=== PATIENT | male | born 1960 | race Caucasian/White ===

== ENCOUNTER 2023-09-01 02:22 | Inpatient (IN) | payer BC, SELFPAY ==
[2023-09-01] VITALS (22 sets, daily range): BP systolic 100–163; BP diastolic 72–104; BMI 30.7; BMI 29.9
[2023-09-01] MEDS: LOW STRENGTH ASPIRIN 324 MG PO (00:25)
[2023-09-01] MEDS: NITROSTAT (SUBLINGUAL) 0.400000000000000022 MG SL ×3 (00:33→11:02)
--- NOTE | 2023-09-01 00:33 | ED.GENMED ---
History of Present Illness
General
Chief Complaint: Chest Pain
Source: patient
Exam Limitations: none
Time Seen by Provider: 09/01/23 00:29
Nursing documentation reviewed up to this point in time: agreed with
Travel History
Have you had any contact with someone who has COVID-19?: No
Do you have any symptoms of coronavirus? Fever > 100 degrees, chills, cough, shortness of breath, sore throat, loss of taste or smell, muscle aches, or headache?: No
History of Present Illness
History of Present Illness:
63-year-old male presents with chest pressure onset earlier today has been present most of the day no diaphoresis no nausea vomiting nonradiating for about the past month or so has had shortness of breath and wheezing worse at night when he lies
down, no fever chills no leg edema does not drink or smoke no amphetamine or cocaine use, no history of heart failure or CAD, the new symptom tonight was pressure in his chest
His father at age 51 from an [place] in his sleep
Past History
Past History
ED Past Medical History: None
ED Past Surgical History: None
Social History
Tobacco: Non-smoker
Alcohol: None
Drug: None
Personal:
Living: with family
Employment: Employed
Family History
Family History: CAD and Sudden
Phy Exam
Physical Exam
Physical Exam:
Physical Exam
General: no apparent distress, not acutely ill
Neck: No jaundice
Heart: Regular
Lungs: no acute respiratory distress. clear bilaterally
Abdomen: Nontender
Neuro: alert and oriented. no focal neurological deficits
Skin: no rash
Psychiatric: well kept. interactive and cooperative
Extremities: no edema.
Scores
Heart Score for Chest Pain Patients
STEMI patient?: No
History: Moderately Suspicious
ECG: Nonspecific Repolarization
Age: >45 - <65 years
Risk Factors: No Risk Factors
Troponin: </= Normal Limit
Heart Score for Chest Pain Patients: 3
Heart Score Risk: 2.5% MACE over next 6 weeks
Course
Orders/Labs/Results
Orders:
Orders
09/01/23 00:09
Electrocardiogram (*1) Urgent
Reason for Study: Other
Other Reason for Exam: Respiratory Distress
Cardiac Monitoring- Treatment ONCE
EKG- Treatment ONCE
IV Insert/Care/Rem.- Treatment PRN
CR Chest - 2 Views Urgent
Comment:
Reason For Exam: respiratory distress
O2 Therapy [RESP] Urgent
Titrate/Wean O2 to maintain O2 sat greater than (%): 93
Special Instructions: TO MAINTAIN CONTINUOUS O2 SATS >/= 93%
Pulse Ox/cont/shift [RESP] Urgent
Quantity: 1
Special Instructions: continuous pulse ox
09/01/23 00:23
Complete Blood Count/With Diff Urgent
Comprehensive Metabolic Panel Urgent
NT-proBNP Urgent
Troponin I Urgent
09/01/23 00:25
Aspirin Chewable [Low Strength Aspirin] 324 mg PO NOW STA
09/01/23 00:26
PTT Urgent
Prothrombin Time Urgent
09/01/23 00:28
EKG [Electrocardiogram (*1)] Urgent
Reason for Study: Chest Pain
EKG- Treatment ONCE
09/01/23 00:29
Aspirin 325 mg PO NOW STA
Nitroglycerin Sublingual [Nitrostat (Sublingual)] 0.4 mg SL [id number] PRN
09/01/23 00:30
CR Chest Portable - 1 View Urgent
Comment:
Reason For Exam: sob
Reason Study Needs to be Portable: Unable to Transport
09/01/23 01:08
EKG with chest pain [ECG as needed] As Directed
ECG as needed for:: Chest Pain
09/01/23 01:16
PTT Urgent
Comment: Obtain baseline before beginning heparin infusion if not already collected
Heparin 4,000 units IV NOW STA
Metoprolol [Lopressor] 25 mg PO NOW STA
Pharmacy Request to Place See Dose Instructions PO NOW STA
Discontinue all Active Warfarin orders?: Yes
Nursing to Place Non Medication Order As Directed
Physician Order: PTT 6 hours after initial start of Heparin infusion
09/01/23 01:30
Heparin 92177 Units/250 ml 25,000 units in 250 ml IV PER PROTOCOL
Weight to be used for heparin protocol in kilograms (kg):: 105.4
Protocol:: Cardiac Tx/Acute Coronary
PTT Goal Range to be used:: PTT 73 to 111 seconds
Order type:: Initial
INITIAL Infusion Dose (UNITS/KG/hr) & then follow protocol:: 12 units/kg/hr
Infusion Dose in UNITS/hr & then follow protocol (UNITS/hr):: 1,000
INFUSION RATE in mL/hr & then follow protocol (mL/hr):: 10
PTT less than or equal to 64 seconds:: Increase rate by 200 units/hr (+ 2 mL/hr)
PTT 64.1 to 72.9 seconds:: Increase rate by 100 units/hr (+ 1 mL/hr)
PTT 73 to 111 seconds:: Target Range. No change in rate.
PTT 111.1 to 130.9 seconds:: Decrease rate by 100 units/hr (- 1 mL/hr)
PTT 131 to 199.9 seconds:: HOLD for 1 hr. Then decrease rate by 200 units/hr (- 2 mL/hr)
PTT greater than or equal to 200 seconds:: HOLD for 2 hrs & Notify Provider. Then decrease by 200 units/hr (-
2 mL/hr)
Lab follow-up:: Each change, PTT q6h until 2 consecutive are therapeutic. Then PTT
daily.
09/01/23 02:[address] See Dose Instructions IV DIRECTED
09/01/23 03:30
Troponin I Urgent
Abnormal Lab Results
09/01/23
00:23
MCH 31.5 H pg
(27.0-31.0)
Abs Immat Gran (auto) 0.1 H 10^3/uL
(0-0.05)
Immature Gran % 1.0 H %
(0-0.5)
BUN 24 H mg/dl
(9-20)
09/01/23 00:23
09/01/23 00:23
Vital Signs
Initial and Last Documented VS:
Initial Vital Signs
Temp Pulse Resp BP Pulse Ox
97.7 F 90 20 163/99 100
09/01/23 00:20 09/01/23 00:20 09/01/23 00:20 09/01/23 00:20 09/01/23 00:20
Last Documented Vital Signs
Temp Pulse Resp BP Pulse Ox
97.7 F 97 14 135/85 92
09/01/23 00:20 09/01/23 01:15 09/01/23 01:15 09/01/23 01:03 09/01/23 01:15
MDM/Problems Addressed
Differential Diagnosis Includes:
ACS heart failure a flutter A-fib conceivably PE pneumonia
MDM/Problems Addressed:
Chest pain
*Radiology
Radiology exam reviewed: preliminary read by ED provider
*Pulse Oximetry
Patient hypoxic: no
*EKG
Interpreted by ED Provider?: Yes
Interpretation: abnormal
Comparison EKG: no comparison EKG present
Heart Rate: 108
Rate: tachycardiac
Rhythm: atrial flutter
Ischemia: non-specific ST changes
*Inspector Packer Interpretation
Rate: tachycardiac
Interpretation: abnormal
Heart Rate: 100
Rhythm: a-fib
*Critical Care Note
Total Time (30-74mins, 75-104mins- exclusive of procedures): 30
Update Note
Update Note:
12:50 AM patient chest pain-free after 1 sublingual nitro troponin is pending chest x-ray is pending
1:15 AM patient appears comfortable still in A-fib flutter in the 100-110range, troponins undetectable, will repeat will start on unfractioned heparin start beta-jem due to his family history due to chest pain believe is prudent admitted to the
hospital rule out [place] consideration for specialty consultation etc.
ED Attending Note
-
Portions of this chart may have been created with voice recognition software.� Occasional wrong word or��sound alike� substitutions may have occurred due to the inherent limitations of voice recognition software.
Discharge Plan
Departure
Patient Disposition: Admit
Date of Disposition: 09/01/23
Time of Disposition: 01:20
Admit to: IVU
Presentation/result/management discussed w/ accepting MD/DO: Hospitalist
Patient with high blood pressure during this ER visit?: Yes
Condition: Good
Discharge Problem:
Chest pain, Atrial fibrillation/flutter
Prescriptions:
No Action
ibuprofen 600 mg Tablet
600 mg PO DAILYPRN PRN (Reason: knee pain)
Referrals:
Jaja Cook PA-C [Family Provider] -
Interventions
Interventions:
*Risk Screen - Suicide Last Done: 09/01/23 00:20
*General Assessment Last Done: 09/01/23 00:20
*Neglect/Abuse Screening Last Done: 09/01/23 00:20
ED- Fall Risk Assessment Last Done: 09/01/23 00:31
*ED COVID-19 Vaccine History Last Done: 09/01/23 00:23
ED- Cardiac Assessment Last Done: 09/01/23 00:35
Discharge Date and Time
Print Language: TURKISH
[2023-09-01 00:42] LABS: % Basophils 0.3 % (0-2); % Eosinophils 3.8 % (0-6); % Lymphocytes 39.4 % (20.5-51.1); % Monocytes 8.5 % (1.7-9.3); Absolute Eosinophils 0.3 10^3/uL (0-0.7); Absolute Immature Granulocytes 0.1 10^3/uL (0-0.05); Absolute Lymphocytes 2.7 10^3/uL (1.2-3.4); Absolute Monocytes 0.6 10^3/uL (0.1-0.6); Absolute Neutrophils 3.3 10^3/uL (1.4-6.5); Hematocrit 45.8 % (39.0-52.0); Hemoglobin 15.9 g/dL (13.0-18.0); Mean Corp Hgb Conc. 34.7 g/dL (33.0-37.0); Mean Corpuscular Hgb 31.5 pg (27.0-31.0); Mean Corpuscular Volume 90.9 fL (80.0-94.0); Mean Platelet Volume 9.7 fL (7.4-10.4); Nucleated Red Blood Cells % 0 % (-); Platelet Count 228 10^3/uL (130-400); Red Blood Cell Count 5.04 10^6/uL (4.70-6.10); Red Cell Dist. Width 11.6 % (11.5-14.5); White Blood Cell Count 6.9 10^3/uL (4.8-10.8)
[2023-09-01 00:44] LABS: APTT 26.8 Sec (23.4-35.0); INR 0.96; PT 12.6 Sec (11.4-14.6)
[2023-09-01 00:47] LABS: ALT (SGPT) 39 U/L (0-50); AST (SGOT) 41 U/L (17-59); Albumin 4.8 g/dl (3.5-5.0); Alkaline Phosphatase 93 U/L (38-126); Blood Urea Nitrogen 24 mg/dl (9-20); Calcium 10.2 mg/dl (8.4-10.2); Carbon Dioxide 28 mmol/L (22-30); Chloride 102 mmol/L (98-107); Estimated Creatinine Clearance 81 ml/min; Glucose 90 mg/dl (70-99); Potassium 4.6 mmol/L (3.5-5.1); Sodium 138 mmol/L (135-145); Total Bilirubin 0.5 mg/dl (0.2-1.3); Total Protein 7.3 g/dl (6.3-8.2); eGFR > 60.00
[2023-09-01 01:02] LABS: NT-proBNP 365 pg/ml; Troponin I < 0.012 ng/ml
--- NOTE | 2023-09-01 01:03 | EDRN ---
Pt states that slight pressure has returned. Maybe a 1/10 pressure on L upper chest. Bp 135/85. NTG given. EKG done and DR Almanzar into see pt.
[2023-09-01] MEDS: LOPRESSOR 25 MG PO (01:29)
[2023-09-01] MEDS: HEPARIN 4000 UNITS IV (01:30)
[2023-09-01] MEDS: HEPARIN 25000 UNITS/250 ML IV ×2 (01:31→22:09)
--- NOTE | 2023-09-01 01:35 | HPS.HSE ---
Family Physician
-
Family Physician: Jaja Cook PA-C
Chief Complaint
-
Chest pressure
History of Present Illness
63M Non smoker with no signifcant PMHx seen at ER for evaluation of Chest pressure:
Chest pressure
- New onset since yesterday morning - he woke up with it
- No prior HX suggestive of exertional angina. Work out everyday including last night prior to this ER visit
- lasted most of the day and decribed as chest discomfort which relived by SL NTG at ER twice
- Currently CP free
- No N/V or diaphoresis
- Reports SoB and wheezing especially at night with lying flat for last 4 weeks
- POS strong FHx of CAD and sudden
- Non smoker
- No prior CAD, OR or Card cath
Medical History
Past Medical History
Past Medical History: Reports None
Past Surgical History: Reports None
Social History
Tobacco: Non-smoker
Alcohol: None
Personal:
Living: With Family
Family History
Family History: CAD and Sudden
Allergies / Home Medications
Allergies reflects when Allergies were last updated in [facility].
Home Medications with original date entered in [facility]
Allergy/Medication List:
Allergies
Allergy/AdvReac Type Severity Reaction Status Date / Time
No Known Allergies Allergy Unverified 09/01/23 00:22
Home Medications
ibuprofen 600 mg tablet 600 mg PO DAILYPRN PRN knee pain 09/01/23
Review of Systems
-
Constitutional: Reports No Symptoms
EENT: Reports No Symptoms
Respiratory: Reports No Symptoms
Cardiac: Reports See HPI and Chest Pain; Denies Diaphoresis, Palpitations or Syncope
Abdomen/GI: Denies Nausea or Vomiting
: Reports No Symptoms
Musculoskeletal: Reports No Symptoms
Skin: Reports No Symptoms
Neurological: Reports No Symptoms
Endocrine: Reports No Symptoms
Hematologic/Lymphatic: Reports No Symptoms
Psych: Reports No Symptoms
Physical Exam
Vital Signs
Vital Signs
Temp Pulse Resp BP Pulse Ox
97.7 F 85 14 118/72 92
09/01/23 00:20 09/01/23 01:29 09/01/23 01:15 09/01/23 01:29 09/01/23 01:15
Physical Exam
General: No Apparent Distress, Comfortable and Conversant
HEENT: NormoCephalic, Anicteric and Moist mucous membranes
Respiratory: Clear; No Wheezes, Rales or Rhonchi
Cardiac: S1/S2 and Irregular Rhythm; No Bradycardia
Breast: Deferred by me
GI: Soft, Non Tender, Non Distended and Normal Bowel Sounds
Rectal: Deferred by Provider
Genito-urinary: Deferred by me
Musculoskeletal: No Edema
Skin: Warm and Dry; No Rash or Jaundice
Neuro: AO x 3 and Nonfocal/grossly intact
Psych: Calm
Laboratory Results
-
09/01/23 00:23
09/01/23 00:23
Laboratory Results
PT 12.6 Sec (11.4-14.6) 09/01/23 00:26
INR 0.96 09/01/23 00:26
APTT 26.8 Sec (23.4-35.0) 09/01/23 00:26
Total Bilirubin 0.5 mg/dl (0.2-1.3) 09/01/23 00:23
AST 41 U/L (17-59) 09/01/23 00:23
ALT 39 U/L (0-50) 09/01/23 00:23
Alkaline Phosphatase 93 U/L (38-126) 09/01/23 00:23
Troponin I < 0.012 ng/ml 09/01/23 00:23
Data Reviewed
-
Diagnostic Radiology: Image Personally Visualized and interpreted
Medical Tests (Nuc Med, Echo, EKG etc): Report Reviewed by me
Lab Data: Labs Reviewed by me
Impression/Plan
-
Reviewed VS: Afebrile , HR 90s - low 100s BP 130/85 RR POx 92- 96
Data
Unremarkable CBC
Unremarkable CMP
NEG 1st TPNI
proBNP 365
[place]KG at 0009H 09/01/23
SINUS RHYTHM WITH 1ST DEGREE A-V BLOCK WITH PREMATURE SUPRAVENTRICULAR COMPLEXES
ST ELEVATION CONSIDER INFERIOR INJURY OR ACUTE INFARCT
ACUTE OR / STEMI
ABNORMAL ECG
NO PREVIOUS ECGS AVAILABLE
09/01/23 @ 0028H 09/01/23
ATRIAL FLUTTER WITH VARIABLE A-V BLOCK
INCOMPLETE RIGHT BUNDLE BRANCH BLOCK
INFERIOR INFARCT , AGE UNDETERMINED
ABNORMAL ECG
WHEN COMPARED WITH ECG OF 01-SEP-2023 00:24,
INCOMPLETE RIGHT BUNDLE BRANCH BLOCK IS NOW PRESENT
INFERIOR INFARCT IS NOW PRESENT
My view on CXR: unremarkable
No prior DH admission:
ASSESSMENT & PLAN
New oset CP with abn first EKG concerning for ACS/USA vs. NSTEMI
So far NEG TPNI , unremarkable proBNP
Second EKG with new onset of A Flutter with variable blaock
- agree with ASA
- Heparin gtt
- cont IV Metoprolol 2. 5mg q6H
- Nitropaste 1 inh now and then 0.[address] of NTG SL PRN
- Trend TPNI and EKG
- ECHO
- NPO till eval by Card
- CBC card consulted - case safety and security manager dw cadd operator
DVT Px: on Heparin gtt
Code: Full
IP TLM
[2023-09-01] MEDS: NITRO-BID 1 INCH TOPICAL (02:14)
--- NOTE | 2023-09-01 04:15 | PTCARENOTE ---
Pt adm to IVU from ED on stretcher accompanied by spouse. IV Heparin at 1000 units/hr. No c/o cp or sob. Pt was in aflutter upon arrival but quickly converted to sinus at 0316. call dickens within reach
[2023-09-01 04:21] LABS: Troponin I < 0.012 ng/ml
[2023-09-01] MEDS: LOPRESSOR IV ×3 (06:46→23:50)
--- NOTE | 2023-09-01 08:04 | CON.CAR ---
Addendum entered and electronically signed by Paramjit Perez MD 09/01/23 10:52:
recurrent CP
Check EKG
Try SL NTG
Trend troponin
Cancel discharge
Addendum entered and electronically signed by Paramjit Perez MD 09/01/23 09:36:
I saw and examined the patient.
The GREEN MARKETER's note was reviewed and I agree with the note.
Comment: 63M with FH CAD admitted with atrial flutter and chest pain. Flutter resolved spontaneously, as did CP. Troponin and EKG OK
- Flutter
- continue BB
- C2V is zero. We discussed risks, benefits, and alternatives of AC, which is generally not indicated. He will not start AC
- Ablation is attractive option if it recurs
- CP - I suspect - but can't be sure - it was due to flutter. He is very active without CP usually. I offered stress test on Sunday vs. home/stress test next week. He understands he would need to come back via EMS for recurrent CP. He would like to
go home. My office will arrange stress test
- OK for d/c. Start ASA 81 and continue BB.
Original Note:
Consultation
Consultation Request
Date/Time Consultation Requested: 09/01/23353
Date/Time Consultation Performed: 09/01/23 0735
Requesting Provider: Dr. Felix
Performing Provider: Kati COREA for Dr. Perez
Reason for Consultation: chest discomfort, abnormal EKG
Medical History
-
Chief Complaint: chest discomfort
History of Present Illness:
63 y/o male who denies any personal PMH, but does have family history of premature CAD (Dad [place] age 51), who is here for evaluation of mild left-sided chest pressure that he woke up with yesterday. It continued throughout the day, but was
without associated symptoms. It did not worsen, but did not resolve, so he came in overnight. There was initially concern for ACS, and he was placed on ASA, heparin. His chest discomfort resolved with nitroglycerin. Trops have been normal so far. He
was seen to be in atrial flutter. He was given metoprolol. He is in SR and CP free at the time of my assessment. He has been feeling his normal self overall, except has noted some nighttime congestion over the past month or so, which resolves in the
day.
Past Medical History
Past Medical History: None
Social History
Tobacco: Non-Smoker
Alcohol: None
Drug: None
Personal:
Living: With Family
Employment: Retired (but still works part-time)
Family History
Family History: Early CAD (dad [place] age 51)
Allergies / Home Medications
Allergy/AdvReac Type Severity Reaction Status Date / Time
No Known Allergies Allergy Verified 09/01/23 03:38
�Medication �Instructions �Recorded �Confirmed �Type
ibuprofen 600 mg tablet 600 mg PO DAILYPRN PRN knee pain 09/01/23 09/01/23 History
Review of Systems
-
History Source: Patient
All other systems: Negative unless noted
Cardiac: Chest Pain
Physical Exam
Vital Signs
Temp Pulse Resp BP Pulse Ox
97.6 F 64 16 142/94 97
09/01/23 04:10 09/01/23 07:50 09/01/23 07:50 09/01/23 03:11 09/01/23 07:50
Lab Results
Troponin I < 0.012 ng/ml 09/01/23 03:46
Ijz-W-Vdipquqbzqv Pept 365 pg/ml 09/01/23 00:23
Physical Exam
General: Well Developed, Well Nourished and No Apparent Distress
HEENT: Normocephalic and Anicteric
Respiratory: Clear and Non Labored Respirations
Cardiac: Regular Rhythm
Breast: Deferred by me
GI: Soft, Non Distended and Normal Bowel Sounds
Musculoskeletal: No Edema
Skin: Warm and Dry
Neuro: AO x 3
Psych: Calm
Impression / Plan
-
Atrial flutter, typical:
-now back in SR
-continue metoprolol
-[id number] score is 0, so OAC not necessary at this time
-check TSH (pending)
-will need echo
-can consider ablation as OP
-will discuss plan with Dr. Perez
Chest discomfort:
-resolved with nitro
-trops normal so far, AM one is pending
-ASA, heparin drip initiated- requires intensive monitoring
-likely related to above (atrial flutter), but should have ischemic evaluation (with timing to be determined)
Data Reviewed
-
EKG: Tracing Personally Visualized and interpreted (aflutter 105 BPM)
Radiology: Image Personally Visualized and interpreted (report is pending, but no acute disease to my review)
Labs: Labs Reviewed by me
[2023-09-01 08:32] LABS: Hematocrit 40.2 % (39.0-52.0); Hemoglobin 14.3 g/dL (13.0-18.0); Mean Corp Hgb Conc. 35.6 g/dL (33.0-37.0); Mean Corpuscular Hgb 31.6 pg (27.0-31.0); Mean Corpuscular Volume 88.9 fL (80.0-94.0); Mean Platelet Volume 9.8 fL (7.4-10.4); Platelet Count 218 10^3/uL (130-400); Red Blood Cell Count 4.52 10^6/uL (4.70-6.10); Red Cell Dist. Width 11.7 % (11.5-14.5); White Blood Cell Count 5.5 10^3/uL (4.8-10.8)
[2023-09-01 08:39] LABS: APTT 38.2 Sec (23.4-35.0)
[2023-09-01 08:46] LABS: Troponin I < 0.012 ng/ml
[2023-09-01] MEDS: LOW STRENGTH ASPIRIN 81 MG PO (08:50)
[2023-09-01 09:03] LABS: ALT (SGPT) 32 U/L (0-50); AST (SGOT) 33 U/L (17-59); Alkaline Phosphatase 74 U/L (38-126); Blood Urea Nitrogen 21 mg/dl (9-20); Calcium 9.3 mg/dl (8.4-10.2); Carbon Dioxide 29 mmol/L (22-30); Chloride 103 mmol/L (98-107); Estimated Creatinine Clearance 96 ml/min; Glucose 94 mg/dl (70-99); HDL Cholesterol 48 mg/dl; LDL Cholesterol, Calculated 111 mg/dl; Potassium 4.8 mmol/L (3.5-5.1); Sodium 136 mmol/L (135-145); Total Bilirubin 0.7 mg/dl (0.2-1.3); Total Cholesterol 176 mg/dl (50-199); Total Protein 6.2 g/dl (6.3-8.2); Triglyceride 88 mg/dl (10-149); Very Low Density Lipoprotein 17 mg/dl (0-30); eGFR > 60.00
[2023-09-01] MEDS: NITRO-BID TOPICAL (11:05)
[2023-09-01] MEDS: NITRO-BID 0.5 INCH TOPICAL ×3 (11:07→22:08)
--- NOTE | 2023-09-01 11:16 | PTCARENOTE ---
Pt c/o 1-2 out of 10 chest discomfort. He describes it as 'left breast tightness'. He stated that it felt the same as what he came in for. VSS, EKG obtained. NTG 1 sl given. notified. Meds as ordered. Will monitor.
[2023-09-01 11:52] LABS: Glycohemoglobin (HgbA1c) 5.4 % (4.0-5.6)
--- NOTE | 2023-09-01 11:52 | W.PN.UPDATE ---
Update Note
Progress Note Update
Seen and examined independent of overnight physician. Nonbillable note
Current states without any chest pain. Had chest pain yesterday during the daytime and also while working out. Chest pain resolved with nitroglycerin. Later heard back, per cardiology patient with recurrent chest pain and would like to monitor
patient
General: No Apparent Distress, Comfortable and Conversant
HEENT: NormoCephalic, Anicteric and Moist mucous membranes
Respiratory: Clear; No Wheezes, Rales or Rhonchi
Cardiac: S1/S2 and Irregular Rhythm; No Bradycardia
Breast: Deferred by me
GI: Soft, Non Tender, Non Distended and Normal Bowel Sounds
Rectal: Deferred by Provider
Genito-urinary: Deferred by me
Musculoskeletal: No Edema
Skin: Warm and Dry; No Rash or Jaundice
Neuro: AO x 3 and Nonfocal/grossly intact
Psych: Calm
New onset of atrial flutter
-Now back in sinus rhythm. Continue metoprolol.
-[id number] score cardiology no need to start anticoagulation.
-Echocardiogram
Chest pain typical
-Nitroglycerin as needed
-Trend troponin
-Continue with aspirin and heparin drip
-Show cholesterol 136 with LDL 111. TSH pending. Check A1c.
DVT Px: on Heparin gtt
Code: Full
[2023-09-01 12:20] LABS: Troponin I < 0.012 ng/ml
[2023-09-01 14:00] LABS: TSH Reflex To Free T4 3.91 uIU/ml (0.47-4.68)
[2023-09-01] MEDS: TYLENOL 650 MG PO (15:55)
[2023-09-01 16:52] LABS: APTT 42.6 Sec (23.4-35.0)
[2023-09-01] MEDS: LIPITOR 40 MG PO (17:41)
[2023-09-01] MEDS: LOPRESSOR 5 MG IV (18:31)
[2023-09-01 23:26] LABS: APTT 48.4 Sec (23.4-35.0)
[2023-09-02] VITALS (9 sets, daily range): BP systolic 126–151; BP diastolic 83–111; BMI 29.7
--- NOTE | 2023-09-02 02:47 | PTCARENOTE ---
Pt rec'd at change of shift with family at bedside. Pt states he feels little closed in staying in his room. pt encouraged to ambulate to lounge with family. Pt denied cp with increased activity. Sinus on telemetry. Heparin drip increased per
protocol.
[2023-09-02] MEDS: NITRO-BID 0.5 INCH TOPICAL ×4 (05:19→22:38)
[2023-09-02] MEDS: LOPRESSOR IV (05:19)
[2023-09-02 05:41] LABS: % Basophils 0.2 % (0-2); % Eosinophils 5.2 % (0-6); % Immature Granulocytes 0.3 % (0-0.5); % Lymphocytes 25.5 % (20.5-51.1); % Monocytes 8.5 % (1.7-9.3); % Neutrophils 60.3 % (42.2-75.2); Absolute Eosinophils 0.3 10^3/uL (0-0.7); Absolute Lymphocytes 1.5 10^3/uL (1.2-3.4); Absolute Monocytes 0.5 10^3/uL (0.1-0.6); Absolute Neutrophils 3.5 10^3/uL (1.4-6.5); Hematocrit 41.2 % (39.0-52.0); Mean Corpuscular Hgb 30.4 pg (27.0-31.0); Mean Corpuscular Volume 89.6 fL (80.0-94.0); Mean Platelet Volume 9.6 fL (7.4-10.4); Nucleated Red Blood Cells % 0 % (-); Platelet Count 188 10^3/uL (130-400); Red Cell Dist. Width 11.8 % (11.5-14.5); White Blood Cell Count 5.8 10^3/uL (4.8-10.8)
[2023-09-02 05:54] LABS: APTT 65.6 Sec (23.4-35.0)
[2023-09-02 06:04] LABS: Blood Urea Nitrogen 16 mg/dl (9-20); Calcium 8.9 mg/dl (8.4-10.2); Carbon Dioxide 22 mmol/L (22-30); Chloride 109 mmol/L (98-107); Estimated Creatinine Clearance 108 ml/min; Glucose 102 mg/dl (70-99); Sodium 136 mmol/L (135-145); eGFR > 60.00
[2023-09-02 06:13] LABS: Troponin I < 0.012 ng/ml
--- NOTE | 2023-09-02 08:00 | W.PN.CD ---
Today's Communication / Plan
-
Change metoprolol to po
LHC AM
Impression / Plan
-
Impression: 63M with FH CAD admitted with CP and atrial flutter. Flutter resolved spontaneously but nitrate responsive CP persisted.
Plan
Atrial flutter, typical:
-now back in SR
-continue metoprolol -> switch to po
-[id number] score is 0, so OAC not necessary at this time
-will need echo
-can consider ablation as OP
-KAYODE evaluation as OP
Chest discomfort: Pain is typical angina but EKG and troponin quite normal.
- Med Rx with ASA/UFH/BB/statin
- We discussed stress test vs. cath. I felt either was reasonable but since he has ongoing anginal CP, LHC was ideal (I would worry stress test was false negative - if it was negative). LHC in AM
Laboratory Data
09/02/23
05:23
Hgb 14.0
Creatinine 0.8
Troponin I < 0.012
Generic Name Dose Route Start Last Admin
Trade Name Freq PRN Reason Stop Dose Admin
Heparin Sodium 25,000 units in 250 mls @ 0 mls/hr 09/01/23 01:30 09/01/23 22:09
Heparin 18238 Units/250 Ml IV 250 mls
PER PROTOCOL LINCOLN
Protocol
Per Protocol
Nitroglycerin 0.5 inch 09/01/23 06:00 09/02/23 05:19
Nitroglycerin 1 Inch/1 Gram Packet TOPICAL 09/29/23 05:59 0.5 inch
Q6 LINCOLN
Aspirin 81 mg 09/01/23 08:00 09/01/23 08:50
Aspirin 81 Mg Chewable Tablet PO 09/29/23 07:59 81 mg
DAILY LINCOLN
Metoprolol Tartrate 5 mg 09/01/23 06:00 09/02/23 05:19
Metoprolol 5 Mg/5 Ml Vial IV 09/29/23 05:59 Not Given
Q6 LINCOLN
Atorvastatin Calcium 40 mg 09/01/23 18:00 09/01/23 17:41
Atorvastatin (Lipitor) 40 Mg Tablet PO 09/29/23 17:59 40 mg
QPM LINCONL
Physical Exam
Vital Signs/Labs
Vital Signs
Temp Pulse Resp BP Pulse Ox
36.4 C 64 20 137/87 96
09/02/23 07:25 09/02/23 05:30 09/02/23 07:25 09/02/23 05:16 09/02/23 07:25
09/01/23 09/02/23 09/03/23
06:59 06:59 06:59
Actual Weight 226 lb 6.636 oz
09/02/23 05:23
09/02/23 05:23
PT 12.6 Sec (11.4-14.6) 09/01/23 00:26
INR 0.96 09/01/23 00:26
APTT 65.6 Sec (23.4-35.0) H 09/02/23 05:23
Triglycerides 88 mg/dl (10-149) 09/01/23 08:09
LDL Cholesterol, Calc 111 mg/dl 09/01/23 08:09
VLDL Cholesterol, Calc 17 mg/dl (0-30) 09/01/23 08:09
HDL Cholesterol 48 mg/dl 09/01/23 08:09
09/01/23
00:23
Nqf-P-Mwarqdfujwm Pept 365
LAB Results
09/01/23 09/01/23 09/01/23
00:23 03:46 03:54
Troponin I < 0.012 < 0.012 Cancelled
09/01/23 09/01/23 09/02/23
08:09 11:50 05:23
Troponin I < 0.012 < 0.012 < 0.012
Physical Exam
Constitutional: No acute distress
EENT: Anicteric and Moist mucous membranes
Cardiovascular: Rhythm & rate is regular, Pedal edema is absent, JVD pressure is normal, Systolic murmur absent and Diastolic murmur absent
Respiratory: Respiratory effort normal
GI: Soft, Distention absent, Non tender and Normal bowel sounds
Neuro/Psych: Alert
Data Reviewed
-
Date of Service: September 02, 2023
EKG: Other (tele ok)
[2023-09-02] MEDS: LOW STRENGTH ASPIRIN 81 MG PO (10:05)
--- NOTE | 2023-09-02 11:28 | W.PN.HOSP.TC ---
Today's Communication/Plan
-
LHC in am
hep gtt
nitro
Assessment / Plan
Assessment / Plan
New onset of atrial flutter
-Now back in sinus rhythm. Continue metoprolol.
-[id number] score cardiology no need to start anticoagulation.
-Echocardiogram tomorrow
Angina Typical chest pain
-Trope negative
-Continue with aspirin and heparin drip and nitro
-Show cholesterol 136 with LDL 111. TSH pending. Check A1c at 5.4
-Plan for left heart catheterization in the morning
DVT Px: on Heparin gtt
Code: Full
Anticipated Discharge: > 48 hours
Subjective/Interval History
-
Date of Service: September 02, 2023
No recurrence of chest pain since yesterday
Remains on heparin drip
Denies chest pain currently
Objective Data
-
Labs:
Laboratory Results
09/01/23 09/02/23 09/02/23
23:10 05:23 13:20
WBC 5.8
Hgb 14.0
Hct 41.2
Plt Count 188
APTT 48.4 H 65.6 H Pending
Sodium 136
Potassium 4.0
Chloride 109 H
Carbon Dioxide 22
BUN 16
Creatinine 0.8
Glucose 102 H
Calcium 8.9
Vital Signs:
Vital Signs
Temp Pulse Resp BP Pulse Ox
97.5 F 58 20 147/88 96
09/02/23 07:25 09/02/23 10:45 09/02/23 07:25 09/02/23 07:28 09/02/23 07:25
I&O
09/01/23 09/02/23 09/03/23
06:59 06:59 06:59
Intake Total 1374 / 1374
Output Total 650 / 650
Balance -650 / -650 1373
Physical Exam
-
General: Well Developed and No Apparent Distress
HEENT: Normocephalic, Atraumatic and Moist Mucous Membranes
Respiratory: Clear to Auscultation
Cardiac: Regular Rhythm and S1/S2; Negative Murmur, Rub or Gallop
GI: Soft, Nontender, Nondistended and Normal Bowel Sounds; Negative Organomegaly
Rectal: Deferred by Provider
Musculoskeletal: No Clubbing, No Cyanosis and No Edema
Skin: Negative Rash
Neuro: Awake, Oriented, AO x 3, No Motor Deficits and Nonfocal/Grossly Intact
[2023-09-02] MEDS: HEPARIN 25000 UNITS/250 ML IV (13:55)
[2023-09-02 14:06] LABS: APTT 71.7 Sec (23.4-35.0)
[2023-09-02] MEDS: LIPITOR 40 MG PO (17:30)
--- NOTE | 2023-09-02 18:55 | PTCARENOTE ---
Pt noted to have a 4 beat run of VT.
[2023-09-02] MEDS: LOPRESSOR 25 MG PO (20:16)
[2023-09-02 20:34] LABS: APTT 66.2 Sec (23.4-35.0)
[2023-09-02] MEDS: TYLENOL 650 MG PO (22:39)
--- NOTE | 2023-09-02 23:46 | PTCARENOTE ---
Pt rec'd at change of shift awake,alert with family at bedside. ambulated in [place] without c/p. Pt did develop H/A prior to bed, Tylenol given. Pt aware of npo status after mn for cath in am. heparin adjusted for ptt 66.2. currently infusing at 1900
unit/hr. Sinus on telemetry. call dickens within reach.
[2023-09-03] VITALS (18 sets, daily range): BP systolic 124–165; BP diastolic 51–108; BMI 29.0
[2023-09-03] MEDS: HEPARIN 25000 UNITS/250 ML IV (03:39)
--- NOTE | 2023-09-03 04:25 | PTCARENOTE ---
Pt awoken for am labs and VS. Denies cp or sob. remains npo for cath today.
[2023-09-03 04:27] LABS: % Basophils 0.2 % (0-2); % Immature Granulocytes 0.2 % (0-0.5); % Monocytes 8.2 % (1.7-9.3); % Neutrophils 48.4 % (42.2-75.2); Absolute Eosinophils 0.3 10^3/uL (0-0.7); Absolute Lymphocytes 1.9 10^3/uL (1.2-3.4); Absolute Monocytes 0.4 10^3/uL (0.1-0.6); Absolute Neutrophils 2.5 10^3/uL (1.4-6.5); Hematocrit 40.5 % (39.0-52.0); Hemoglobin 13.8 g/dL (13.0-18.0); Mean Corp Hgb Conc. 34.1 g/dL (33.0-37.0); Mean Corpuscular Hgb 30.5 pg (27.0-31.0); Mean Corpuscular Volume 89.4 fL (80.0-94.0); Nucleated Red Blood Cells % 0 % (-); Platelet Count 190 10^3/uL (130-400); Red Blood Cell Count 4.53 10^6/uL (4.70-6.10); Red Cell Dist. Width 11.8 % (11.5-14.5); White Blood Cell Count 5.1 10^3/uL (4.8-10.8)
[2023-09-03 04:46] LABS: APTT 88.4 Sec (23.4-35.0)
[2023-09-03 04:52] LABS: Blood Urea Nitrogen 16 mg/dl (9-20); Calcium 8.9 mg/dl (8.4-10.2); Carbon Dioxide 23 mmol/L (22-30); Chloride 108 mmol/L (98-107); Estimated Creatinine Clearance 124 ml/min; Glucose 95 mg/dl (70-99); Potassium 3.8 mmol/L (3.5-5.1); Sodium 136 mmol/L (135-145); eGFR > 60.00
[2023-09-03] MEDS: NITRO-BID TOPICAL (06:00)
--- NOTE | 2023-09-03 07:26 | W.PN.HOSP.TC ---
Today's Communication/Plan
-
NPO for cardiac cath
Assessment / Plan
Assessment / Plan
New onset of atrial flutter
-Now back in sinus rhythm. Continue metoprolol.
-[id number] score = 0; per cardiology no need to start anticoagulation.
-Echocardiogram today
Angina Typical chest pain
-chest pain returned post resolution of aflutter and responsive to nitrate
-Trop negative
-Continue with aspirin and heparin drip and nitro
-metoprolol
-total cholesterol 176 with LDL 111. TSH pending. Check A1c at 5.4
-Plan for left heart catheterization in the morning
DVT Px: on Heparin gtt
Code: Full
Anticipated Discharge: 24 - 48 hours
Subjective/Interval History
-
Date of Service: September 03, 2023
currently denies chest pain
with nitropaste on
Objective Data
-
Labs:
Laboratory Results
09/02/23 09/03/23 09/03/23
20:14 03:49 11:00
WBC 5.1
Hgb 13.8
Hct 40.5
Plt Count 190
APTT 66.2 H 88.4 H Pending
Sodium 136
Potassium 3.8
Chloride 108 H
Carbon Dioxide 23
BUN 16
Creatinine 0.7
Glucose 95
Calcium 8.9
Vital Signs:
Vital Signs
Temp Pulse Resp BP Pulse Ox
97.7 F 65 20 143/83 95
09/03/23 03:43 09/02/23 22:15 09/03/23 03:43 09/02/23 20:04 09/03/23 03:43
I&O
09/02/23 09/03/23 09/04/23
06:59 06:59 06:59
Intake Total 1374 / 1374 1093 / 1093
Balance 1374 / 1374 1093 / 1093
Review of Systems
-
History Source: Patient
All other systems: Reviewed and negative
Physical Exam
-
General: Well Developed and No Apparent Distress
HEENT: Normocephalic, Atraumatic and Moist Mucous Membranes
Respiratory: Clear to Auscultation
Cardiac: Regular Rhythm and S1/S2; Negative Murmur, Rub or Gallop
GI: Soft, Nontender, Nondistended and Normal Bowel Sounds; Negative Organomegaly
Rectal: Deferred by Provider
Musculoskeletal: No Clubbing, No Cyanosis and No Edema
Skin: Negative Rash
Neuro: Awake, Oriented, AO x 3, No Motor Deficits and Nonfocal/Grossly Intact
Psych: Calm
Data Reviewed
-
Diagnostic Radiology: Report Reviewed by me
Labs: Labs Reviewed by me
[2023-09-03] MEDS: LOW STRENGTH ASPIRIN 81 MG PO (09:16)
[2023-09-03] MEDS: LOPRESSOR 25 MG PO ×2 (09:17→20:40)
--- NOTE | 2023-09-03 09:27 | CM ---
Addendum entered by Ana María Barrett 09/03/23 14:36:
Telephone call to [facility] to check on co-pay for Brilinta 90 mg po bid. He has a deductible of $7000.00 that has to be met. So his first script would be $260.13. He has commercial insurance so he can use the $5.00 coupon, that would nake he
co-pay $60.00 a month. Placed the coupon in his red discharge folder.
Original Note:
Reviewed chart. Met with Mr. Driver to review discharge plans. He states prior to admission he resides with his spouse and daughter in a two story home with two steps to enter. He states he has a full flight of steps to get to bedroom/full
bathroom. He states he has a powder room on the first floor. He states prior to admission he was independent with ambulation and adls. He states he has a prescription plan and uses [facility]. Medica work-up in progress. The discharge plan is
to return home with his spouse and daughter when medically stable.
--- NOTE | 2023-09-03 09:45 | W.PN.CD ---
Today's Communication / Plan
-
Echo pending.
[facility] this morning.
Tolerating metoprolol PO.
Impression / Plan
-
Impression/Plan: 63M with FH CAD admitted with CP and atrial flutter. Flutter resolved spontaneously but nitrate responsive CP persisted.
#Atrial flutter, typical:
-Back in SR.
-Rate control with metoprolol succinate.
-[id number] score = 0.
-No role for therapeurtic anticoagulation.
-Echo pending.
-KAYODE and ablation workup as outpatient.
#Chest discomfort:
-Pain is typical angina but EKG and troponin quite normal.
-Med Rx with ASA/UFH/BB/statin.
-Given typical symptoms with strong family history, patient opted for coronary angiography for definitive assessment of anatomy. [facility] this morning.
Subjective/Interval History:
No acute events.
No subjective complaints.
Physical Exam
Vital Signs/Labs
Vital Signs
Temp Pulse Resp BP Pulse Ox
36.5 C 73 20 139/89 98
09/03/23 07:45 09/03/23 09:17 09/03/23 07:45 09/03/23 09:17 09/03/23 07:45
09/01/23 09/02/23 09/03/23
11:59 11:59 11:59
Actual Weight 102.7 kg 102.1 kg 99.7 kg
09/03/23 03:49
09/03/23 03:49
PT 12.6 Sec (11.4-14.6) 09/01/23 00:26
INR 0.96 09/01/23 00:26
APTT 88.4 Sec (23.4-35.0) H 09/03/23 03:49
Triglycerides 88 mg/dl (10-149) 09/01/23 08:09
LDL Cholesterol, Calc 111 mg/dl 09/01/23 08:09
VLDL Cholesterol, Calc 17 mg/dl (0-30) 09/01/23 08:09
HDL Cholesterol 48 mg/dl 09/01/23 08:09
09/01/23
00:23
Nww-K-Oczbragrkxc Pept 365
LAB Results
09/01/23 09/01/23 09/01/23
00:23 03:46 03:54
Troponin I < 0.012 < 0.012 Cancelled
09/01/23 09/01/23 09/02/23
08:09 11:50 05:23
Troponin I < 0.012 < 0.012 < 0.012
Physical Exam
Constitutional: No acute distress and Comfortable
EENT: Anicteric and Moist mucous membranes
Cardiovascular: Rhythm & rate is regular, Pedal edema is absent, JVD pressure is normal, S1S2 is normal and Murmur/rub/gallop absent
Respiratory: Respiratory effort normal, Lungs clear to auscul., Wheeze Absent, Crackles Absent and Rhonchi Absent
GI: Soft, Distention absent, Flat, Non tender and Normal bowel sounds
Neuro/Psych: AO x 3
Data Reviewed
-
Date of Service: September 03, 2023
Medical Decision Making: Reviewed Test Results, Independent Historian Assessment and Test Interpretation
EKG: Tracing Personally Visualized and interpreted and Report Reviewed by me
X-Ray/CT/US/MRI/NUC/PET: Image Personally Visualized and interpreted and Report Reviewed by me
Labs: Labs Reviewed by me
[2023-09-03 10:27] LABS: ACT-LR - POC 377 Seconds (116-155)
[2023-09-03 10:50] LABS: ACT-LR - POC 271 Seconds (116-155)
--- NOTE | 2023-09-03 10:53 | ITS.CL.ANGIO ---
Hand Cloth Cutter - Angioplasty
Angioplasty
Procedure Report:
CARDIAC CATHETERIZATION REPORT
Date of Procedure: 09/03/2023
Referring: Paramjit Perez M.D.
INDICATION: Unstable angina.
PROCEDURE:
1. Left heart catheterization.
2. Coronary angiography
3. Successful IVUS guided PCI of the proximal LAD.
ACCESS:
6 Nauruan right radial artery.
CATHETERS:
1. 5 Nauruan JR4.
2. 5 Nauruan JL 3.5.
3. 6 Nauruan EBU 3.5 guiding catheter.
HEMODYNAMIC DATA
Weight (kg): 99.3
AO (s/d/x, mmHg): 138/79/102
LV (s/x mmHg): 146/17
LEFT VENTRICULOGRAPHY: Not performed.
CORONARY ANGIOGRAPHY
Dominance: Right.
Left Main: Normal size, trifurcating vessel. There is no coronary artery disease.
LAD: Normal size vessel giving rise to 1 significant diagonal. There is an 80% lesion in the proximal margin of the LAD. There are luminal irregularities elsewhere.
Ramus: Medium size vessel supplying the lateral wall. There is no coronary artery disease.
Circumflex: Normal size, nondominant vessel giving rise to 1 obtuse marginal that parallels the ramus. The origin of the circumflex is extremely angulated, approximately 120 degrees.
RCA: Normal size, dominant vessel with a relatively high, downward facing origin. There are luminal irregularities throughout.
INTERVENTION(S)
1. Successful IVUS guided PCI of the 80% proximal LAD lesion (Xience Skypoint 3.5 x 18 TIGRE, postdilated with a 4.0 NC balloon in the mid section and a 4.5 NC balloon in the proximal margin) with reduction in stenosis to 0%, maintaining KELLY-3 flow.
Narrative:
The decision was made to proceed with percutaneous coronary intervention. The diagnostic catheter was removed over a wire and a 6Fr EBU 3.5 guiding catheter was advanced to the aortic root and seated in the left main coronary artery. Additional
heparin was given and a Power Turn Flex wire was advanced into the distal LAD. The BMW wire was advanced into the first diagonal for protection. The 80% proximal LAD lesion was predilated with a 2.0 x 12 semi-compliant balloon to 12 delilah.
The decision was made to perform intracoronary imaging. An IVUS catheter was advanced through the guiding catheter and into the ostium of the artery. Ring down was performed once the imaging crystal was no longer inside of the guiding catheter. The
IVUS catheter was advanced into the mid LAD, beyond the lesion in question. Intravascular ultrasound was performed in a retrograde fashion using a slow pullback. Intracoronary imaging demonstrated diffuse, mild atherosclerosis with a severe,
fibrofatty plaque in the proximal LAD. Arterial measurements distal and proximal to the lesion were taken.
The IVUS catheter was removed and a Xience Skypoint 3.5 x 18 drug-eluting stent was advanced. Meticulous care was taken while positioning the stent, ensuring that the stent did not intrude into the large, final shaped ostium of the LAD but was long
enough to cover the entire lesion. The stent was deployed at 12 atmospheres. The stent balloon was removed. A 4.5 x 12 noncompliant balloon was advanced into the stent and the proximal stent was postdilated to 14 atmospheres. IVUS was repeated and
showed good stent apposition with perhaps very mild underexpansion in the mid section of the stent. A 4.0 x 12 noncompliant balloon was advanced into the mid stent. The mid stent was postdilated to 15 delilah. The noncompliant balloon was removed.
Angiography was performed in orthogonal views, confirming good stent expansion and an excellent angiographic result. The coronary wire was withdrawn and the guide was disengaged from the artery. The catheter was removed over a standard J-wire.
Closure Device: Vascular band.
Radiation (mGy): 931.95
DAP (cm2.Gy): 56.6809
Fluoroscopy time (minutes): 11.0
Sedation time (minutes): 52
CONCLUSIONS
1. Right dominant circulation with a high, down facing origin of the RCA, and extremely angulated origin of the circumflex, and an 80% lesion in the proximal LAD, status post successful IVUS guided PCI (Xience Skypoint 3.5 x 18 TIGRE, postdilated
with a 4.0 NC balloon in the mid section and a 4.5 NC balloon in the proximal margin) with reduction in stenosis to 0%, maintaining KELLY-3 flow in all vessels.
2. Mildly elevated filling pressures (LVEDP = 17 mmHg at 99.3 kg).
RECOMMENDATIONS:
1. Expectant management after cardiac catheterization via right radial approach.
2. Limited weight bearing on the right wrist for one week.
3. Dual antiplatelet therapy with aspirin and ticagrelor for at least 12 months, followed by aspirin indefinitely.
4. Echocardiogram ordered and pending.
5. Monitor renal function. Consider gentle diuresis in the future.
6. Secondary prevention with high-dose, high potency statin.
7. Referral to cardiac rehab.
Copy to: Paramjit Perez M.D., Jaja Lugo PA-C
Eliud George DO, FACC, FACP
[2023-09-03] MEDS: NSS 1000 IV (11:42)
--- NOTE | 2023-09-03 15:59 | PTCARENOTE ---
Patient returned from cardiac cath at 1100 after PCI to LAD via right radial artery. Radial band now removed, dressing is dry and intact, strong radial pulse with no signs of hematoma. Monitoring VS, IV NS infusing at 150ml/hr as ordered. Patient
denies any pain or discomfort. Tolerated lunch and oob to the bathroom and voided qs. in visiting.
[2023-09-03] MEDS: LIPITOR 40 MG PO (17:40)
[2023-09-03] MEDS: BRILINTA 90 MG PO (20:40)
[2023-09-04 04:10] VITALS: BP 157/76
[2023-09-04 04:44] LABS: Hematocrit 44.6 % (39.0-52.0); Hemoglobin 15.3 g/dL (13.0-18.0); Mean Corp Hgb Conc. 34.3 g/dL (33.0-37.0); Mean Corpuscular Hgb 30.7 pg (27.0-31.0); Mean Corpuscular Volume 89.6 fL (80.0-94.0); Mean Platelet Volume 9.3 fL (7.4-10.4); Platelet Count 199 10^3/uL (130-400); Red Blood Cell Count 4.98 10^6/uL (4.70-6.10); Red Cell Dist. Width 11.8 % (11.5-14.5); White Blood Cell Count 7.1 10^3/uL (4.8-10.8)
--- NOTE | 2023-09-04 04:50 | PTCARENOTE ---
Pt slept well overnight. No issues to report. Vital signs remain stable. Right radial cath site WNL. HR inthe 50's SB overnight. Pt hopeful to go home today.
[2023-09-04 05:16] LABS: Blood Urea Nitrogen 12 mg/dl (9-20); Calcium 9.4 mg/dl (8.4-10.2); Carbon Dioxide 22 mmol/L (22-30); Chloride 107 mmol/L (98-107); Estimated Creatinine Clearance 108 ml/min; Glucose 97 mg/dl (70-99); Magnesium 2.1 mg/dl (1.6-2.3); Potassium 4.3 mmol/L (3.5-5.1); Sodium 136 mmol/L (135-145); eGFR > 60.00
--- NOTE | 2023-09-04 07:23 | W.PN.HOSP.TC ---
Today's Communication/Plan
-
anticipate DC later today after seen by cardiology, will follow up final recs
Assessment / Plan
Assessment / Plan
CARDIAC CATH 09/03/23
CONCLUSIONS
1. Right dominant circulation with a high, down facing origin of the RCA, and extremely angulated origin of the circumflex, and an 80% lesion in the proximal LAD, status post successful IVUS guided PCI (Xience Skypoint 3.5 x 18 TIGRE, postdilated
with a 4.0 NC balloon in the mid section and a 4.5 NC balloon in the proximal margin) with reduction in stenosis to 0%, maintaining KELLY-3 flow in all vessels.
2. Mildly elevated filling pressures (LVEDP = 17 mmHg at 99.3 kg).
TTE 09/03/23
CONCLUSIONS
Mild left ventricular dilation with normal wall thickness and low normal
systolic function. Normal regional wall motion. Left ventricular ejection
fraction is 50-55% by Restrepo's method of discs. Normal diastolic function.
Dilated right ventricle with normal function.
Mild biatrial dilation.
No significant valve abnormalities.
The IVC is severely dilated and demonstrates normal respiratory variation.
Right atrial pressure estimated at 15 mmHg.
Aortic dilation of the sinuses of Valsalva (3.7 cm) and ascending aorta (4.5
cm).
Mild pulmonary hypertension. PASP estimated at 41 mmHg.
No prior study available for comparison.
Unstable Angina
CAD
-patient had chest pain with resolution of aflutter leading to further work-up with cardiac cath, s/p cardiac cath 09/02 and s/p PCI LAD
-Trop negative
-TTE results above
-continue aspirin/Brillinta, statin, metoprolol
-continue lisinopril
-total cholesterol 176 with LDL 111. Check A1c at 5.4
New onset of atrial flutter
-Now back in sinus rhythm. Continue metoprolol.
-[id number] score = 0 (now 1 given finding CAD); confirming with cardiology no need for AC
TTE
-EF 50-55%; dilated IVC - good resp variation
-patient without shortness of breath, laying flat, no hx smoking
DVT Px: SCD, ambulatory
Code: Full
Anticipated Discharge: Within 24 hours
Subjective/Interval History
-
Date of Service: September 04, 2023
feeling well
no chest pain
wants to leave today
has been up and walking around
Objective Data
-
Labs:
Laboratory Results
09/04/23 09/04/23
04:24 04:27
WBC 7.1
Hgb 15.3
Hct 44.6
Plt Count 199
Sodium 136
Potassium 4.3
Chloride 107
Carbon Dioxide 22
BUN 12
Creatinine 0.8
Glucose 97
Calcium 9.4
Vital Signs:
Vital Signs
Temp Pulse Resp BP Pulse Ox
98.5 F 54 20 157/76 98
09/04/23 03:10 09/04/23 04:45 09/04/23 03:10 09/04/23 04:10 09/04/23 04:10
I&O
09/03/23 09/04/23 09/05/23
06:59 06:59 06:59
Intake Total 3 / 1093 2189
Balance 3 / 1092189
Review of Systems
-
History Source: Patient
All other systems: Reviewed and negative
Physical Exam
-
General: Well Developed and No Apparent Distress
HEENT: Normocephalic, Atraumatic and Moist Mucous Membranes
Respiratory: Clear to Auscultation
Cardiac: Regular Rhythm and S1/S2; Negative Murmur, Rub or Gallop
GI: Soft, Nontender, Nondistended and Normal Bowel Sounds; Negative Organomegaly
Rectal: Deferred by Provider
Musculoskeletal: No Clubbing, No Cyanosis, No Edema and Other (right wrist without hematoma; sensation in tact)
Skin: Negative Rash
Neuro: Awake, Oriented, AO x 3, No Motor Deficits and Nonfocal/Grossly Intact
Psych: Calm
Data Reviewed
-
Diagnostic Radiology: Report Reviewed by me
Labs: Labs Reviewed by me
[2023-09-04 07:49] VITALS: BP 156/93
--- NOTE | 2023-09-04 08:08 | CM ---
Reviewed chart. Met with Mr. Driver to review co-pay information. Reviewed he has a $7000.00 out of pocket to be met. So his first script for Brilinta would be $438.00. He can use the Brilita coupon that would take $200.00 off so his co-pay would
be $238.00 for the first script. Once he mets his out of pocket cost his co-pay would be $60.00 a month and the coupon would bring that down to $5.00 a month. He felt this may be doable but wants to review with spouse before committing. He states
he feels well and maybe able to go home soon. Prior to admission he resides with his spouse in a two story home with two steps to enter. He has a full flight of steps to get to bedroom/full bathroom. He has a powder room on the first floor. Prior
to admission he was independent with ambulation and adls. He does not have any DME in the home. He has a prescription plan and uses [facility]. Medical work-up in progress. The discharge plan is to return home with his spouse when medically
stable.
--- NOTE | 2023-09-04 08:54 | W.PN.CD ---
Today's Communication / Plan
-
Plavix load this afternoon then discharged
Increased lisinopril to 10 mg
Cont metop
Impression / Plan
-
Impression/Plan: 63M with FH CAD admitted with CP and atrial flutter. Flutter resolved spontaneously but nitrate responsive CP persisted.
#Atrial flutter, typical:
-Back in SR.
-Rate control with metoprolol succinate.
-[id number] score = 2, HTN and CAD
-Given new CAD and HTN CHADSVASC 2, Eliquis BID
-Echo pending.
-KAYODE and ablation workup as outpatient.
#Chest discomfort: Culprit Prox LAD PCI
-Resolved s/p PCI to LAD w/ TIGRE Xience 3.5x18 mm
- Eliquis 5mg bid and Plavix
- Plavix 600 mg this late after noon then discharge home
TTE:
CONCLUSIONS
Mild left ventricular dilation with normal wall thickness and low normal
systolic function. Normal regional wall motion. Left ventricular ejection
fraction is 50-55% by Restrepo's method of discs. Normal diastolic function.
Dilated right ventricle with normal function.
Mild biatrial dilation.
No significant valve abnormalities.
The IVC is severely dilated and demonstrates normal respiratory variation.
Right atrial pressure estimated at 15 mmHg.
Aortic dilation of the sinuses of Valsalva (3.7 cm) and ascending aorta (4.5
cm).
Mild pulmonary hypertension. PASP estimated at 41 mmHg.
No prior study available for comparison.
Subjective/Interval History:
Feeling better, discussed need for AC and is agreeable
Physical Exam
Vital Signs/Labs
Vital Signs
Temp Pulse Resp BP Pulse Ox
97.2 F 57 16 157/76 99
09/04/23 07:50 09/04/23 07:50 09/04/23 07:50 09/04/23 04:10 09/04/23 07:50
09/03/23 09/04/23 09/05/23
06:59 06:59 06:59
Actual Weight 219 lb 12.814 oz
09/04/23 04:24
09/04/23 04:27
PT 12.6 Sec (11.4-14.6) 09/01/23 00:26
INR 0.96 09/01/23 00:26
APTT Cancelled 09/03/23 11:00
Magnesium 2.1 mg/dl (1.6-2.3) 09/04/23 04:27
Triglycerides 88 mg/dl (10-149) 09/01/23 08:09
LDL Cholesterol, Calc 111 mg/dl 09/01/23 08:09
VLDL Cholesterol, Calc 17 mg/dl (0-30) 09/01/23 08:09
HDL Cholesterol 48 mg/dl 09/01/23 08:09
09/01/23
00:23
Gro-B-Ioyqndamuul Pept 365
LAB Results
09/01/23 09/01/23 09/02/23
03:54 11:50 05:23
Troponin I Cancelled < 0.012 < 0.012
Physical Exam
Constitutional: No acute distress
EENT: Anicteric
Cardiovascular: Rhythm & rate is regular and Pedal edema is absent
Respiratory: Respiratory effort normal and Lungs clear to auscul.
GI: Soft
Neuro/Psych: AO x 3
Data Reviewed
-
Date of Service: September 04, 2023
Medical Decision Making: Reviewed Test Results
EKG: Tracing Personally Visualized and interpreted (sinus )
Echo: Report Reviewed by me
Labs: Labs Reviewed by me
[2023-09-04] MEDS: LOPRESSOR 25 MG PO (09:01)
[2023-09-04] MEDS: ZESTRIL 10 MG PO (09:01)
[2023-09-04] MEDS: LOW STRENGTH ASPIRIN 81 MG PO (09:01)
[2023-09-04] MEDS: ELIQUIS 5 MG PO (09:02)
[2023-09-04] MEDS: BRILINTA PO (09:02)
--- NOTE | 2023-09-04 11:25 | CM ---
Chart reviewed. Patient is independent of ADLS, lives with his and daughter in a 2 [address], 2 TURNER, 0 DME. Plan is for the patient to return home. CM to follow
--- NOTE | 2023-09-04 11:26 | CM ---
Pricing on [employer]. The first month is $265.25, I gave the patient a free 30 day coupon and then the patient qualifies for the $10 a month copay card. Patient is agreeable to the cost.
[2023-09-04 11:34] VITALS: BP 135/99
--- NOTE | 2023-09-04 13:21 | W.DS.TRANS ---
DC Summary - Diesel Engineer
-
Discharge Instructions:
Sleep Apnea Risk Intermediate
Discharge Diagnosis/Procedures Angioplasty and stent to Left Anterior
Descending artery
Diet Low Cholesterol
Activity As tolerated
Driving Restrictions As prior to admission
Bathing Restrictions None
Other Services Cardiac Rehab
Instructions:
Stand-Alone Forms: DC Instructions- Cath/EP Lab
Changes to Home Medications: Yes
Discharge Medications:
DC Medications w/original date entered in [employer]
apixaban 5 mg tablet (Eliquis) 5 mg PO BID #60 tabs 09/04/23
atorvastatin 40 mg tablet 40 mg PO QPM #30 tabs 09/04/23
clopidogrel 75 mg tablet 75 mg PO DAILY #30 tabs 09/04/23
lisinopril 10 mg tablet 10 mg PO DAILY #30 tabs 09/04/23
metoprolol tartrate 25 mg tablet 25 mg PO BID #60 tabs 09/04/23
Home Medication Changes
Stop Motrin (Ibuprofen). Avoid NSAIDS (aleve, advil etc) while on plavix and Eliquis
You are newly started on:
Plavix 75mg daily x 1 year
Eliquis 5mg twice a day indefinitely (for stroke prevention for atrial fibrillation)
Lisinopril 10mg daily
Metoprolol 25mg twice a day
Atorvastatin 40mg in evenings
Pending Results: No
--- NOTE | 2023-09-04 14:17 | W.DCSUMMARY ---
Discharge Summary
Discharge Data
Date of Admission: 09/01/23
Date of Discharge: 09/04/23
-
Pending Results: No
Hospital Course
Discharging Physician : Dr. Char Horn
Disposition : Home
Primary care physician : Dr. Jaja Cook
Principal Discharge diagnosis : Atrial Flutter; Coronary Artery disease and unstable angina status post Angioplasty and stent to Left Anterior Descending artery
Hospital Course :
Mr. Frankie Driver is a 63 yo man without significant past medical history who presents to the ER with chest pressure. He was found to be in aflutter on arrival and spontaneously converted with resolution of chest pain. He was started on aspirin
and Metoprolol. Chest symptoms initially attributed to aflutter but symptoms returned while patient in sinus rhythm and was responsive to nitro. Patient at this point started on IV heparin gtt for unstable angina and plans made for cardiac cath.
He is status post cardiac cath on 09/02 with findings of 80% lesion in proximal LAD s/p angioplasty and PCI. He was also noted to be hypertensive. With these findings, CHADS2-Vasc score now 2.
Medications on discharge:
Plavix 75mg daily x 1 year
Eliquis 5mg twice a day indefinitely (for stroke prevention for atrial fibrillation)
Lisinopril 10mg daily
Metoprolol 25mg twice a day
Atorvastatin 40mg in evenings
Time spent on discharge was 35 minutes.
Important imaging findings :
TTE 09/03/23
CONCLUSIONS
Mild left ventricular dilation with normal wall thickness and low normal
systolic function. Normal regional wall motion. Left ventricular ejection
fraction is 50-55% by Restrepo's method of discs. Normal diastolic function.
Dilated right ventricle with normal function.
Mild biatrial dilation.
No significant valve abnormalities.
The IVC is severely dilated and demonstrates normal respiratory variation.
Right atrial pressure estimated at 15 mmHg.
Aortic dilation of the sinuses of Valsalva (3.7 cm) and ascending aorta (4.5
cm).
Mild pulmonary hypertension. PASP estimated at 41 mmHg.
No prior study available for comparison.
Procedure findings :
Cardiac Cath 09/02
CONCLUSIONS
1. Right dominant circulation with a high, down facing origin of the RCA, and extremely angulated origin of the circumflex, and an 80% lesion in the proximal LAD, status post successful IVUS guided PCI (Xience Skypoint 3.5 x 18 TIGRE, postdilated
with a 4.0 NC balloon in the mid section and a 4.5 NC balloon in the proximal margin) with reduction in stenosis to 0%, maintaining KELLY-3 flow in all vessels.
2. Mildly elevated filling pressures (LVEDP = 17 mmHg at 99.3 kg).
Discharge Plan
-
Patient Disposition: Home (Routine Discharge)
Discharge Diagnosis/Procedures: Angioplasty and stent to Left Anterior Descending artery
Diet: Low Cholesterol
Activity: As tolerated
Driving Restrictions: As prior to admission
Bathing Restrictions: None
Other Services: Cardiac Rehab
Stand Alone Forms: DC Instructions- Cath/EP Lab
Referrals:
Kimberly Linn NP [Specified Professional Personl] - 09/18/23 10:20 am (Cardiology followup appointment)
Jaja Cook PA-C [Family Provider] - in less than 1 week
Additional Discharge Medication Instructions: Stop Motrin (Ibuprofen). Avoid NSAIDS (Aleve, Advil etc) while on Plavix and Eliquis
You are newly started on:
Plavix 75mg daily x 1 year
Eliquis 5mg twice a day indefinitely (for stroke prevention for atrial fibrillation)
Lisinopril 10mg daily
Metoprolol 25mg twice a day
Atorvastatin 40mg in evenings
(You are prescribed one month and will need refills of all medications)
Prescriptions:
New
atorvastatin 40 mg Tablet
40 mg PO QPM Qty: 30 0RF
metoprolol tartrate 25 mg Tablet
25 mg PO BID Qty: 60 0RF
Eliquis 5 mg Tablet
5 mg PO BID Qty: 60 0RF
clopidogrel 75 mg Tablet
75 mg PO DAILY Qty: 30 0RF
lisinopril 10 mg Tablet
10 mg PO DAILY Qty: 30 0RF
Discontinued
ibuprofen 600 mg Tablet
600 mg PO DAILYPRN PRN (Reason: knee pain)
Discharge Orders:
Discharge Patient (As Directed); Ordered 09/04/23
Ordered By: Char Horn
Care Plan Goals
Care Plan Goals:
Problem: Readiness for enhanced knowledge related to diagnosis and treatment plan
Goal: Understand your diagnosis and treatment plan needs, including medications if applicable.
Instructions: Know your diagnosis, underlying causes and treatment plan options, including medications if applicable. Consult with your health care team to learn about your diagnosis and treatment plan, including medications if applicable.
Discharge Date and Time
Print Language: ARMENIAN
[2023-09-04 15:19] VITALS: BP 111/58
[2023-09-04] MEDS: PLAVIX 600 MG PO (16:17)
== END 2023-09-04 16:45 | disposition home or self-care (01) | DRG 322 ==
LOC: IVU 02:22
PROVIDERS: Emergency Medicine; Hospitalist; ADMITTING PHYSICIAN Internal Medicine; ATTENDING PHYSICIAN Student in an Organized Health Care Education/Training Program; CONSULT PHYSICIAN Internal Medicine Cardiovascular Disease; EMERGENCY PHYSICIAN Emergency Medicine; FAMILY PHYSICIAN Student in an Organized Health Care Education/Training Program
PROC: 4A023N7 Measurement of Cardiac Sampling and Pressure, Left Heart, Percutaneous Approach (ICD-10-PCS; 2023-09-03)
PROC: B240ZZ3 Ultrasonography of Single Coronary Artery, Intravascular (ICD-10-PCS; 2023-09-03)
PROC: 027034Z Dilation of Coronary Artery, One Artery with Drug-eluting Intraluminal Device, Percutaneous Approach (ICD-10-PCS; 2023-09-03)
PROC: B2111ZZ Fluoroscopy of Multiple Coronary Arteries using Low Osmolar Contrast (ICD-10-PCS; 2023-09-03)
DX: I48.3 Typical atrial flutter (principal); I25.110 Atherosclerotic heart disease of native coronary artery with unstable angina pectoris; I48.91 Unspecified atrial fibrillation; I10 Essential (primary) hypertension; I27.20 Pulmonary hypertension, unspecified; I77.810 Thoracic aortic ectasia; Z82.49 Family history of ischemic heart disease and other diseases of the circulatory system
CPT/HCPCS: 71045; 80048; 80053; 80061; 83036; 83735; 83880; 84443; 84484; 85025; 85027; 85347; 85610; 85730; 92978; 93005; 93306; 93458; 96365; 99291; C1725; C1753; C1769; C1874; C1887; C1894; C9600; Q9967

== ENCOUNTER 2023-10-01 07:53 | Day surgery (SDC) | payer BC, SELFPAY ==
[2023-09-26 13:36] VITALS: BMI 29.2
[2023-10-01] VITALS (11 sets, daily range): BP systolic 109–121; BP diastolic 71–83; BMI 29.4
[2023-10-01] MEDS: PLAVIX 75 MG PO (09:02)
[2023-10-01 11:19] LABS: ACT-LR - POC 265 Seconds (116-155)
[2023-10-01 11:37] LABS: ACT-LR - POC 316 Seconds (116-155)
[2023-10-01 11:56] LABS: ACT-LR - POC 343 Seconds (116-155)
--- NOTE | 2023-10-01 12:55 | ITS.CL.ABL ---
[facility] - Ablation
Ablation
Procedure Report:
AFIB ablation:
Mr. Driver is a very pleasant 63 yr old gentleman with medical history significant for symptomatic atrial flutter and paroxysmal atrial fibrillation on Metoprolol on Eliquis, is here in the EP lab for atrial fibrillation ablation
Date of Procedure:
10/01/23
Indications:
Symptomatic atrial fibrillation / atrial flutter
Pre-Operative Diagnosis:
Paroxysmal atrial fibrillation / atrial flutter
Post-Operative Diagnosis:
Paroxysmal atrial fibrillation / atrial flutter
Procedure Performed:
Atrial fibrillation ablation with wide area circumferential ablation (WACA) approach for pulmonary vein isolation
Atrial flutter ablation with cavo-tricuspid isthmus line block formation
Performing Physician:
Elizabeth Fuller MD
Assistants:
EP staff
Anesthesia:
See anesthesia records
Detailed Description of the Procedure:
Written informed consent was obtained from the patient after a full explanation of the risks and benefits of the procedure including the risks of sedation and anesthesia.
The patient was brought to the electrophysiology laboratory in stable condition in fasting state. Continuous electrocardiographic and hemodynamic monitoring was initiated.
The initial rhythm was atrial fibrillation.
The procedure site was meticulously prepared with surgical scrub and allowed to dry with no pooling. Sterile draping was applied to cover the procedure site. The image intensifier was draped with sterile bag and positioned over the patient. After
infusion of local anesthetic, vascular access was obtained under ultrasound guidance and sheaths were placed over guide wire as detailed below.
Sheath and Catheter Placement:
In the right femoral vein, an 8-Zimbabwean sheath was placed for use during the ablation procedure. A second 9-Fr sheath was placed for use during intracardiac echo procedure. �Another 7 Fr sheath was placed in the right femoral vein for CS placement.
The sheaths were upgraded as needed during the case. Intracardiac catheters were positioned using direct fluoroscopic guidance.� ICE catheter was placed in RA. The following catheters / sheaths were placed
Sheaths:
��������������� Carto Visigo sheath in right femoral vein upgraded from 8Fr in right femoral vein
��������������� 9Fr in right femoral vein
Catheters:
������������� Bios[employer] Hoover Thermacool STSF bidirectional (D/F) - at locations of HRA, RV, LA and LV.
������������� Pentaray catheter � at locations of RA, CS and LA
������������� ICE catheter - at locations of RA, SVC, and RV.
Heparin was initiated and infused to maintain appropriate ACT.
Intracardiac ECHO:
An 8-Zimbabwean AcuNav intracardiac ECHO (ICE) probe was advanced through the 9-Zimbabwean sheath in the femoral vein into the right atrium under fluoroscopic and ICE ultrasound image guidance and a baseline ECHO study was performed. The left atrial size
was enlarged. There was moderate tricuspid regurgitation. The aortic valve was grossly normal. There was normal left ventricular systolic functions. There was trace pericardial effusion. All the veins were identified and good flow noted.
The RA was identified and CTI was imaged. There was Eustachian ridge noted and was imaged throughout the ablation.
During the procedure, ICE was used for monitoring of complications, guidance of trans-septal puncture, monitor the catheter position and tracking ablation lesions. No change in the pericardial space noted throughout the procedure.
Electroanatomic mapping of the right atrium:
A J-tipped guidewire was advanced through the 8-Zimbabwean sheath in the right femoral vein into the superior vena cava under fluoroscopic and ICE guidance. The 8-Zimbabwean sheath was exchanged for a VIZIGO sheath which was advanced into the superior vena
cava.
Using the Pentaray catheter advanced through VIZIGO sheath into the right atrium, an electroanatomic map (EAM) of the right atrium was created using [employer] Carto mapping system. The map was used to identify the trans-septal location. It
showed dilated right atrium.
Ablation # 1: Typical Atrial Flutter Ablation:
Patient has a clear history of atrial flutter and as per pre-operative plan. Patient did go into atrial flutter was short lived to be mapped or entrained but appears typical with concentric activation noted on the CS.
Radiofrequency ablation was performed using a 3.5mm, open irrigation, force-sensing bidirectional ablation catheter (Thermocool STSF) in the cavotricuspid isthmus from the tricuspid annulus to the IVC ridge. �All the ablation lesions were guided by
the [facility] SURPOINT module with the CTI lesions were limited to 40-45 joe for SURPOINT lesion index goal of 450.
Then attention was given to atrial fibrillation ablation.
Trans-septal Puncture:
A J-tipped guidewire was advanced through the dilator of the Vizigo sheath in the right femoral vein into the superior vena cava under fluoroscopic and ICE guidance the sheath was advanced into the SVC. A TSX needle was advanced until the tip was
slightly behind the tip of the dilator inside the Visigo sheath. The apparatus was withdrawn until it was in contact with the foramen ovale. The position was adjusted based on fluoroscopy and ultrasound images from ICE. Under fluoroscopic,
hemodynamic and ICE ultrasound guidance, left atrium was cannulated by advancing the needle. Once atrial septum was cannulated, the needle was pulled back and a BMW guide wire was advanced through the needle into the left atrium. The guide wire was
advanced into the left superior pulmonary vein. Both the sheath and the dilator was advanced into the left atrium. The dilator with the needle was withdrawn. Blood was aspirated from the sheath and arterial blood confirmed. The sheath was flushed.
Saline injection noted into the left atrium on ICE. The pressure waveform was checked ad LA pressure measured. The penta-ray catheter was advanced in the sheath into the left pulmonary vein.
The 3-D mapping was done and then the penta-ray was switched to ablation catheter and back to penta-ray as needed.
3D Electroanatomic Mapping - LA:
Using the Pentaray catheter advanced through VIZIGO sheath into the left atrium, an electroanatomic map (EAM) of the left atrium was created using [employer] Carto mapping system. The map was used for localization of catheter position and
tacking of ablation lesions. The EAM of the left atrium showed a two left sided veins with 2 right sided veins with all electrically connected to the body the LA. It showed no significant scar in the LA. The LA was dilated in size.
Following the EAM, preparations were made for ablation.
Phrenic nerve stimulation attempt:
The right sided pulmonary veins were identified and the anterior antrum and the deep anterior locations of the PVs were check with high output stimulation 20mA for 4 milliseconds that showed no phrenic nerve capture in any of the potential ablation
areas.
No phrenic nerve capture was noted and the safe areas were marked and a design line was created through the areas of tested antral myocardium for ablation lesions.
Ablation # 2: Pulmonary vein Isolation:
Radiofrequency ablation was performed using an open irrigation, force-sensing 3.5mm radiofrequency ablation catheter ([employer] STSF) by completing the circumferential lesions around the left and right pulmonary veins achieving pulmonary vein
isolation.
All the ablation lesions were guided by the [employer] SURPOINT module with the posterior lesions were limited to 40 joe for SURPOINT lesion index goal of 380 and anterior wall lesions were limited to SURPOINT index goal of 450.
The esophagus was noted to be on the left side of the LA near the PV antra based on the locations of the esophageal temperature probe. Ablation was stopped for any temperature increase of 0.1 degree C. Max esophageal temperature was 37.8C.
The atrial fibrillation was converted to sinus while doing ablation of the LSPV.
Ablation # 3: Epicardial connection:
The epicardial connections around the naa of the right sided PVs were identified by capturing LA from pacing from these locations. These locations were ablated and there was no capture noted after that. A complete empirical carinal line was
created connecting the anterior lesions of the right sided veins to the posterior lesions across the right sided naa.
EP study and Confirmation of the PVI and bidirectional block:
Following achievement of entrance block at the pulmonary veins, pacing from the pentaray catheter in each of the four veins at 10 milliamps for 2 milliseconds showed entrance and exit block. All PVI were rechecked at the end of the case and remained
isolated with dissociated and local capture with pacing. Entrance and exit block were demonstrated in all veins.
The LA was mapped with Carto EAM in sinus rhythm confirming the line of block at the ablation lesions lines.
Atrial Flutter � CTI block:
The right atrium was again mapped after the AF ablation with CS pacing. Following observations were made.
��������������� -Bidirectional block was confirmed across the CTI line with differential pacing.
��������������� -Double potentials were spaced greater than 145 msec apart.
��������������� -The conduction time across the CTI line from proximal CS pacing was 168 msec.
��������������� -EAM of the right atrium was obtained with coronary sinus pacing and showed a line of block at the CTI.
��������������� -The time interval just lateral to the ablation lesions was 168 msec and the lateral wall was 152 msec
��������������� - All these maneuvers confirmed the block at the CTI line.
- Post ablation HV interval was unchanged at 46msec
Sinus Node Function: The sinus node functions are within acceptable normal range.
The AV belinda functions are deemed within normal range.
AH and HV was measured. AH 84 and HV 46 msec
Arrhythmia Induction:
No sustained arrhythmia was induced at the end of the study.�
Procedure End
ICE study was done again that showed no epicardial accumulation. No complications noted.
Following the completion of the EP study, catheters were removed. Protamine 40 mg was given at the end of the procedure and ACT was checked repeatedly. The sheaths were removed and hemostasis achieved with �VASCADE� and manual compression after
acceptable ACT is achieved.
Left atrial Pressure:
Pre-ablation: Mean LA pressure was 4mmHg
Post-ablation: Mean LA pressure was 4mmHg
Post ablation RA pressure: 1 mmHg
Estimated Blood loss:
<10 cc
Specimens Removed:
None.
Implants / Devices:
None
Urine output:
None
Packs / Drains/ Tubes:
None
Instrument / Sponge Count Correct:
Yes
Complications of the Procedure:
None
Condition of Patient at Time of Transfer:
Hemodynamically stable with no neurological or vascular compromise.
Summary:
Successful atrial fibrillation ablation with circumferential bidirectional line of block at pulmonary vein antra (Pulmonary vein isolation), CTI line formation for typical atrial flutter, epicardiac connection ablation
[2023-10-01] MEDS: ANESTHETIC LOZENGE 1 LOZENGE PO (13:45)
--- NOTE | 2023-10-01 15:34 | W.PN.UPDATE ---
Update Note
Progress Note Update
Pt seen post PVI. Right groin with vascade closure, no ht/bleeding, non tender. OOB ambulating, urinating without difficulty. Post EKG NSR 70s, no acute changes. Resume eliquis tonight, continue other meds as before. Followup at [facility] arranged. Home
today if groin site/tele remain stable.
== END 2023-10-01 15:15 | disposition home or self-care (01) ==
LOC: CATH 07:53
PROVIDERS: ATTENDING PHYSICIAN Internal Medicine Cardiovascular Disease; FAMILY PHYSICIAN Student in an Organized Health Care Education/Training Program
DX: I48.0 Paroxysmal atrial fibrillation (principal); I48.3 Typical atrial flutter; I25.10 Atherosclerotic heart disease of native coronary artery without angina pectoris; I27.20 Pulmonary hypertension, unspecified; E78.00 Pure hypercholesterolemia, unspecified
CPT/HCPCS: C1769; C1760; C1732; C1892; C1759; 36415; 76937; 85347; 86850; 86900; 86901; 93005; 93655; 93656

== ENCOUNTER 2024-09-15 12:56 | Day surgery (SDC) | payer BC, SELFPAY ==
[2024-09-15] VITALS (20 sets, daily range): BP systolic 91–158; BP diastolic 64–98; BMI 29.5
[2024-09-15 01:44] LABS: % Basophils 0.4 % (0-2); % Eosinophils 3.1 % (0-6); % Immature Granulocytes 0.3 % (0-0.5); % Lymphocytes 30.9 % (20.5-51.1); % Monocytes 11.6 % (1.7-9.3); % Neutrophils 53.7 % (42.2-75.2); Absolute Eosinophils 0.2 10^3/uL (0-0.7); Absolute Lymphocytes 2.1 10^3/uL (1.2-3.4); Absolute Monocytes 0.8 10^3/uL (0.1-0.6); Absolute Neutrophils 3.6 10^3/uL (1.4-6.5); Hematocrit 40.4 % (39.0-52.0); Hemoglobin 13.9 g/dL (13.0-18.0); Mean Corp Hgb Conc. 34.4 g/dL (33.0-37.0); Mean Corpuscular Hgb 30.7 pg (27.0-31.0); Mean Corpuscular Volume 89.2 fL (80.0-94.0); Mean Platelet Volume 9.5 fL (7.4-10.4); Nucleated Red Blood Cells % 0 % (-); Platelet Count 207 10^3/uL (130-400); Red Blood Cell Count 4.53 10^6/uL (4.70-6.10); Red Cell Dist. Width 11.8 % (11.5-14.5); White Blood Cell Count 6.8 10^3/uL (4.8-10.8)
[2024-09-15 02:10] LABS: Troponin I < 0.012 ng/ml
[2024-09-15 02:13] LABS: ALT (SGPT) 78 U/L (0-50); AST (SGOT) 51 U/L (17-59); Albumin 4.6 g/dl (3.5-5.0); Alkaline Phosphatase 122 U/L (38-126); Blood Urea Nitrogen 21 mg/dl (9-20); Calcium 9.2 mg/dl (8.4-10.2); Carbon Dioxide 24 mmol/L (22-30); Chloride 105 mmol/L (98-107); Glucose 111 mg/dl (70-99); Potassium 4.1 mmol/L (3.5-5.1); Sodium 140 mmol/L (135-145); Total Bilirubin 0.5 mg/dl (0.2-1.3); Total Protein 6.7 g/dl (6.3-8.2); eGFR > 60.00
[2024-09-15 06:20] LABS: Troponin I < 0.012 ng/ml
--- NOTE | 2024-09-15 06:36 | ED.GENMED ---
History of Present Illness
<Maria Dolores Carter MD, Resident - Last Filed: 09/15/24 09:15>
General
Chief Complaint: Chest Pain
Time Seen by Provider: 09/15/24 06:08
History of Present Illness
History of Present Illness:
This is a 64-year-old male with past medical history of A-fib, CAD s/p PCI TIGRE LAD who presents to the ED with intermittent chest pain ongoing for the past 2 weeks. Patient reports 2 weeks ago, while exercising he felt like he pulled a muscle. He
has been experiencing a 3 out of 10 intermittent dull pain since then. He last experienced the pain as a last night prompting him to come to the ED for evaluation. Patient reports pain is NOT similar to the one he experienced one year ago, and
describes it as a musculoskeletal pain this time. Pain is not reproducible, does not radiate anywhere else. Pain is present with exertion and at rest. He denies shortness of breath, palpitation, dizziness, syncope. He has not had any recent
travels, no sick contacts. He denies nausea, vomiting, lower extremity edema
Past History
<Maria Dolores Carter MD, Resident - Last Filed: 09/15/24 09:15>
Past History
ED Past Medical History: Arrthythmia and CAD
ED Past Surgical History: None
Social History
Tobacco: Non-smoker
Alcohol: None
Drug: None
Personal:
Living: with family
Employment: Employed
Family History
Family History: CAD and Sudden
Review of Systems
<Maria Dolores Carter MD, Resident - Last Filed: 09/15/24 09:15>
Review of Systems
All Other Systems: ROS reviewed and negative except as documented in HPI and ROS
Constitutional: Denies fever or fatigue
Respiratory: Denies cough or trouble breathing
ABD/GI: Reports no symptoms
: Reports no symptoms
Phy Exam
<Maria Dolores Carter MD, Resident - Last Filed: 09/15/24 09:15>
General Physical Exam
General Presentation: well appearing and no apparent distress
General Skin: warm and dry
General Mental: alert
ENT Exam
ENT Exam: EOMI
Cardiovascular Exam
Cardiovascular Exam: regular rate/rhythm, no edema and no JVD
Pulmonary Exam
Pulmonary Exam: lungs clear, no respiratory distress, no rales and no crackles
Gastrointestinal Exam
Gastrointestinal Exam: normal bowel sounds, non tender, soft and non distended
Neurological Exam
Neurological Exam: alert and oriented x3
Musculoskeletal Exam
Musculoskeletal Exam: full ROM
Psychiatric Exam
Psychiatric Exam: normal mood/affect
Scores
<Maria Dolores Carter MD, Resident - Last Filed: 09/15/24 09:15>
Heart Score for Chest Pain Patients
STEMI patient?: Not applicable
Course
<Maria Dolores Carter MD, Resident - Last Filed: 09/15/24 09:15>
Orders/Labs/Results
Orders:
Orders
09/15/24 01:20
Electrocardiogram (*1) Urgent
Reason for Study: Chest Pain
09/15/24 01:21
EKG- Treatment ONCE
09/15/24 01:37
Complete Blood Count/With Diff Urgent
Comprehensive Metabolic Panel Urgent
Troponin I Urgent
09/15/24 05:19
EKG [Electrocardiogram (*1)] Urgent
Reason for Study: Chest Pain
EKG- Treatment ONCE
09/15/24 05:30
Troponin I Urgent
09/15/24 06:33
CR Chest - 2 Views Urgent
Comment:
Reason For Exam: chest pain
Abnormal Lab Results
09/15/24
01:37
RBC 4.53 L 10^6/uL
(4.70-6.10)
Absolute Monos (auto) 0.8 H 10^3/uL
(0.1-0.6)
Monocytes % 11.6 H %
(1.7-9.3)
BUN 21 H mg/dl
(9-20)
Glucose 111 H mg/dl
(70-99)
ALT 78 H U/L
(0-50)
09/15/24 01:37
09/15/24 01:37
Vital Signs
Initial and Last Documented VS:
Initial Vital Signs
Temp Pulse Resp BP Pulse Ox
97.8 F 58 18 154/80 99
09/15/24 01:24 09/15/24 01:24 09/15/24 01:24 09/15/24 01:24 09/15/24 01:24
Last Documented Vital Signs
Temp Pulse Resp BP Pulse Ox
97.8 F 64 25 91/77 99
09/15/24 01:24 09/15/24 08:45 09/15/24 08:45 09/15/24 08:00 09/15/24 08:45
<Manuel Arias, DO - Last Filed: 09/15/24 09:14>
Orders/Labs/Results
Orders:
Orders
09/15/24 01:20
Electrocardiogram (*1) Urgent
Reason for Study: Chest Pain
09/15/24 01:21
EKG- Treatment ONCE
09/15/24 01:37
Complete Blood Count/With Diff Urgent
Comprehensive Metabolic Panel Urgent
Troponin I Urgent
09/15/24 05:19
EKG [Electrocardiogram (*1)] Urgent
Reason for Study: Chest Pain
EKG- Treatment ONCE
09/15/24 05:30
Troponin I Urgent
09/15/24 06:33
CR Chest - 2 Views Urgent
Comment:
Reason For Exam: chest pain
Abnormal Lab Results
09/15/24
01:37
RBC 4.53 L 10^6/uL
(4.70-6.10)
Absolute Monos (auto) 0.8 H 10^3/uL
(0.1-0.6)
Monocytes % 11.6 H %
(1.7-9.3)
BUN 21 H mg/dl
(9-20)
Glucose 111 H mg/dl
(70-99)
ALT 78 H U/L
(0-50)
09/15/24 01:37
09/15/24 01:37
Vital Signs
Initial and Last Documented VS:
Initial Vital Signs
Temp Pulse Resp BP Pulse Ox
97.8 F 58 18 154/80 99
09/15/24 01:24 09/15/24 01:24 09/15/24 01:24 09/15/24 01:24 09/15/24 01:24
Last Documented Vital Signs
Temp Pulse Resp BP Pulse Ox
97.8 F 64 25 91/77 99
09/15/24 01:24 09/15/24 08:45 09/15/24 08:45 09/15/24 08:00 09/15/24 08:45
<Maria Dolores Carter MD, Resident - Last Filed: 09/15/24 09:15>
MDM/Problems Addressed
MDM/Problems Addressed:
64-year-old male with past medical history of A-fib, CAD s/p PCI TIGRE LAD who presents to the ED with intermittent chest pain ongoing for the past 2 weeks. EKG on presentation with sinus bradycardia, otherwise nonischemic. No significant findings
on labs, normal troponin level on presentation. Patient is in no acute distress, well-appearing with normal lungs and cardiac exam. Will evaluate with chest x-ray, and discuss with cardiology.
Updates-CXR with no acute cardiac disease. Patient evaluated by cardiology. Will be taken to the [facility] for ischemic evaluations
<Maria Dolores Carter MD, Resident - Last Filed: 09/15/24 09:15>
*Critical Care Note
Total Time (30-74mins, 75-104mins- exclusive of procedures): Not Applicable
ED Attending Note
<Maria Dolores Carter MD, Resident - Last Filed: 09/15/24 09:15>
-
Portions of this chart may have been created with voice recognition software.� Occasional wrong word or��sound alike� substitutions may have occurred due to the inherent limitations of voice recognition software.
<Manuel Arias DO - Last Filed: 09/15/24 09:14>
ED Attending Note
Patient seen and examined by attending physician: Yes
I performed a history and physical exam of patient and discussed management with resident, I reviewed resident's note and agree with documented findings and plan of care.: Yes
ED Attending Note:
64-year-old male with a history of LAD stent and lesion from 1 year ago who presents with 2 weeks of off-and-on left chest discomfort. Started after doing an exercise a suspect that it was a muscle strain. States it does hurt to move sometimes but
also noticed that at rest he noticed the discomfort. Patient states he just became worried. No current symptoms. Otherwise no shortness of breath. No leg swelling. No palpitations. No weakness. Also states he spread 7 yards of mulch recently
felt fine. Exam: Awake and alert, no respiratory distress. EKG normal sinus rhythm with no ischemia. Chest x-ray normal. Assessment and plan: Will coordinate with cardiology. No current evidence of ischemia.
Discharge Plan
Departure
Patient Disposition: FULFILLMENT ASSOCIATE
Date of Disposition: 09/15/24
Time of Disposition: 08:55
Admit to doctor: Dr George
Presentation/result/management discussed w/ accepting MD/DO: Dr Eliud George
Patient with high blood pressure during this ER visit?: Yes
Discharge Problem:
Chest pain
Prescriptions:
No Action
atorvastatin 40 mg Tablet
40 mg PO QPM Qty: 30 0RF
metoprolol tartrate 25 mg Tablet
25 mg PO BID Qty: 60 0RF
Eliquis 5 mg Tablet
5 mg PO BID Qty: 60 0RF
clopidogrel 75 mg Tablet
75 mg PO DAILY Qty: 30 0RF
lisinopril 10 mg Tablet
10 mg PO DAILY Qty: 30 0RF
pantoprazole 40 mg tablet,delayed release (DR/EC)
40 mg PO DAILY Qty: 14 0RF
Referrals:
Jaja Cook PA-C [Family Provider] -
Interventions
Interventions:
*Risk Screen - Suicide Last Done: 09/15/24 01:24
*General Assessment Last Done: 09/15/24 05:44
*Neglect/Abuse Screening Last Done: 09/15/24 01:24
*ED- Fall Risk Assessment Last Done: 09/15/24 05:44
*ED COVID-19 Vaccine History Last Done: 09/15/24 05:44
ED- Cardiac Assessment Last Done: 09/15/24 05:22
Discharge Date and Time
Print Language: LUX[place]BOURGISH
--- NOTE | 2024-09-15 08:16 | CON.CAR ---
Consultation
Consultation Request
Date/Time Consultation Requested: 09/15/2024; 7:19 AM
Date/Time Consultation Performed: 09/15/2024; 8:30 AM
Requesting Provider: Manuel Arias D.O.
Performing Provider: Eliud George D.O.
Reason for Consultation: Chest pain, known CAD.
Medical History
-
Chief Complaint: Chest pain.
History of Present Illness:
64 y/o male with paroxysmal atrial fibrillation/atrial flutter s/p ablation, HTN, HLD and CAD s/p IVUS guided PCI of the LAD (Xience [place] 3.5 x 18 TIGRE to pLAD, post dilated with 4.0 and 4.5 NCB, 09/03/2023) presenting with chest pain.
Chest pain is described as a pressure sensation. It started after performing exercise approximately two weeks ago and has been intermittent. He is getting chest pain with both exercise and at rest. It is non-positional and unrelated to PO intake.
He denies associated, SOB/NESS, diaphoresis, palpitations, syncope and presyncope. In the ER, EKG shows incomplete RBBB but is non-ischemic. Troponin is undetectable x2.
Past Medical History
Past Medical History: CAD, HTN and Hypercholesterolemia
Past Surgical History: Cardiac (80% lesion in the proximal LAD, status post successful IVUS guided PCI (Xience Skypoint 3.5 x 18 TIGRE), 09/03/2023.)
Social History
Tobacco: Non-Smoker
Alcohol: Occasional
Drug: None
Personal:
Living: With Family
Employment: Employed
Family History
Family History: Reviewed & Not Pertinent
Allergies / Home Medications
Allergy/AdvReac Type Severity Reaction Status Date / Time
No Known Allergies Allergy Verified 09/15/24 01:31
�Medication �Instructions �Recorded �Confirmed �Type
apixaban 5 mg tablet (Eliquis) 5 mg PO BID #60 tabs 09/04/23 10/01/23 Rx
atorvastatin 40 mg tablet 40 mg PO QPM #30 tabs 09/04/23 10/01/23 Rx
clopidogrel 75 mg tablet 75 mg PO DAILY #30 tabs 09/04/23 10/01/23 Rx
lisinopril 10 mg tablet 10 mg PO DAILY #30 tabs 09/04/23 10/01/23 Rx
metoprolol tartrate 25 mg tablet 25 mg PO BID #60 tabs 09/04/23 10/01/23 Rx
pantoprazole 40 mg tablet,delayed 40 mg PO DAILY #14 tabs 10/01/23 Rx
release
Review of Systems
-
History Source: Patient
All other systems: Negative unless noted
Constitutional: No Symptoms
EENT: No Symptoms
Respiratory: No Symptoms
Cardiac: Chest Pain
Abdomen/GI: No Symptoms
: No Symptoms
Musculoskeletal: No Symptoms
Skin: No Symptoms
Neurological: No Symptoms
Endocrine: No Symptoms
Hematologic/Lymphatic: No Symptoms
Physical Exam
Vital Signs
Temp Pulse Resp BP Pulse Ox
36.6 C 55 18 129/82 99
09/15/24 01:24 09/15/24 06:00 09/15/24 06:00 09/15/24 06:00 09/15/24 06:00
Lab Results
09/15/24 01:37
09/15/24 01:37
Troponin I < 0.012 ng/ml 09/15/24 05:30
Physical Exam
General: Well Developed, Well Nourished, No Apparent Distress, Comfortable and Good Appetite
HEENT: Normocephalic, Anicteric, Moist Mucous Membranes and Atraumatic
Respiratory: Clear and Non Labored Respirations
Cardiac: S1/S2 and Regular Rhythm
Breast: Deferred by me
GI: Soft, Non Tender, Non Distended and Normal Bowel Sounds
Rectal: Deferred by Provider
Musculoskeletal: No Clubbing, No Cyanosis and No Edema
Skin: Warm and Dry
Neuro: AO x 3 and Nonfocal/Grossly Intact
Hematologic/Lymphatic: No Lymphadenopathy
Psych: Calm
Impression / Plan
-
Impression/Plan: 64 y/o male with HTN, HLD, paroxysmal atrial fibrillation/flutter s/p ablation and CAD s/p IVUS guided PCI to the proximal LAD (09/03/2023) now presenting with chest pain.
#Chest pain
-Acute.
-Troponin negative x2.
-Check echocardiogram.
-The location of the prior stent (ostial/proximal LAD) and time course (~ 12 months) places the patient is in a prime circumstance for ISR of a prognostically important lesion. His symptoms are potentially anginal and reminiscent of his symptoms
that preceded his PCI a year ago.
-The patient was offered the option of non-invasive and invasive ischemic evaluations, noting the risks/benefits of both strategies. The patient has opted for repeat cardiac catheterization to clarify his coronary anatomy.
-Maintain NPO.
-Cardiac catheterization today.
#CAD
-Chronic, possibly unstable.
-S/P prior IVUS guided PCI (Xience 3.5 x 18 TIGRE, post dilated with a 4.0 NCB in the mid portion and a 4.5 NCB in the proximal portion), 09/03/2023.
-Remains on clopidogrel and apixaban.
-Continue atorvastatin 40 mg daily.
#HTN
-Chronic, stable.
-Continue metoprolol/lisinopril.
#Paroxysmal atrial fibrillation/flutter
-Chronic, stable.
-Currently in NSR.
-Rate/rhythm control with metoprolol + ablation.
-CHADS2-Vasc = 2 (HTN, vascular disease).
-Hold apixaban in light of possible procedure.
#HLD
-Chronic, stable.
-Continue atorvastatin 40 mg daily.
-Goal LDL < 55.
Data Reviewed
-
EKG: Tracing Personally Visualized and interpreted, Report Reviewed by me and Discussed with Physician
Radiology: Image Personally Visualized and interpreted and Report Reviewed by me
Medical Tests (Nuc Med, Echo etc): Image Personally Visualized and interpreted and Report Reviewed by me
Labs: Labs Reviewed by me
Old Records: Reviewed
--- NOTE | 2024-09-15 12:55 | ITS.CL.CATH ---
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
Cardiac Catheterization
Procedure Report:
CARDIAC CATHETERIZATION REPORT
Date of Procedure: 09/15/2024
Referring: Eliud George D.O.
INDICATION: Known coronary artery disease, suspicious chest pain.
PROCEDURE:
1. Left heart catheterization.
2. Coronary angiography.
A total of 23 minutes of procedural/moderate sedation was utilized. An independent medical aide was present to assist with and help manage the patient's level of consciousness and physiologic status.
ACCESS:
1. 6 [place] right radial artery using a modified Seldinger technique.
CATHETERS:
1. 5 [place] JR4.
2. 5 [place] JL 3.5.
HEMODYNAMIC DATA
Weight (kg): 104.0
AO (s/d/x, mmHg): 134/70/99
LV (s/x mmHg): 136/7
LEFT VENTRICULOGRAPHY: Not performed.
CORONARY ANGIOGRAPHY
Dominance: Right.
Left Main: Normal size, trifurcating vessel. There is no coronary artery disease.
LAD: Large size vessel giving rise to 1 significant diagonal. There is a patent stent in the ostial/proximal margin of the LAD with no evidence of in-stent restenosis. There is a 20% lesion in the mid vessel.
Ramus: Medium size vessel supplying a significant portion of the lateral wall with at least moderate tortuosity. There is no coronary artery disease.
Circumflex: Relatively small size, nondominant vessel giving rise to 1 obtuse marginal. The origin of the left circumflex is at an extreme angle. There is also severe tortuosity in the obtuse marginal with at least three 170 degree turns.
RCA: Normal size, dominant vessel with a downward angulation. There are minor luminal irregularities in the body of the proximal and mid RCA.
INTERVENTION(S)
None.
Closure Device: Vascular band.
Radiation (mGy): 397.66
DAP (cm2.Gy): 24.4983
Fluoroscopy time (minutes): 2.6
CONCLUSIONS
1. Right dominant circulation with a downward angulation of the RCA with minor luminal irregularities in the proximal and mid RCA, and extreme angulation of the circumflex origin with severe tortuosity in OM1, moderate tortuosity in the ramus, a
20% lesion in the mid LAD and a widely patent stent in the ostial/proximal LAD.
2. Normal filling pressures (LVEDP = 7 mmHg at 104.0 kg).
RECOMMENDATIONS:
1. Expectant management after cardiac catheterization via right radial approach.
2. Limited weight bearing on the right for one week.
3. Discontinue clopidogrel as the patient is >1-year from prior intervention.
4. Continue aggressive secondary prevention with high-dose, high potency statin.
5. Maintain OMT/GDMT as hemodynamics will tolerate (metoprolol, lisinopril).
6. Maintain therapeutic anticoagulation for paroxysmal atrial fibrillation/paroxysmal atrial flutter.
7. Stable for outpatient follow-up.
Copy to: Eliud George D.O., Jaja Cook PA-C
Eliud George, DO, FACC, FACP
[2024-09-15] MEDS: NSS 1000 IV (13:21)
== END 2024-09-15 15:30 | disposition home or self-care (01) ==
LOC: CATH 12:56
PROVIDERS: Student in an Organized Health Care Education/Training Program; ATTENDING PHYSICIAN Internal Medicine Cardiovascular Disease; EMERGENCY PHYSICIAN Emergency Medicine; FAMILY PHYSICIAN Student in an Organized Health Care Education/Training Program
DX: I25.10 Atherosclerotic heart disease of native coronary artery without angina pectoris (principal); R07.9 Chest pain, unspecified; I48.0 Paroxysmal atrial fibrillation; I48.92 Unspecified atrial flutter; Z82.49 Family history of ischemic heart disease and other diseases of the circulatory system; Z95.5 Presence of coronary angioplasty implant and graft; I45.10 Unspecified right bundle-branch block; E78.00 Pure hypercholesterolemia, unspecified; I10 Essential (primary) hypertension; Z79.02 Long term (current) use of antithrombotics/antiplatelets
CPT/HCPCS: 71046; 80053; 84484; 85025; 93005; 93458; 99152; 99153; 99285; C1894; Q9967